=== PATIENT | female | born 1970 | race Caucasian/White ===

== ENCOUNTER → 2016-06-05 | Outpatient (CLI) | payer OTHER ==
[2016-06-05 15:06] LABS: EKG EKG PERFORMED
[2016-06-05 15:40] LABS: Basophils # (A) 0.1 k/uL (0-0.2); Basophils % (A) 1 %; CH 31.3; CHCM 33.3; Eosinophils # (A) 0.1 k/uL (0-0.7); Eosinophils % (A) 1 %; HCT 44.2 % (34.0-46.0); HDW 2.28; HGB 14.1 gm/dL (11.4-16.0); Luc # (Auto) 0.34; Luc % (Auto) 3; Lymphocytes # (A) 2.4 k/uL (1.0-4.8); Lymphocytes % (A) 22 %; MCH 30.1 pg (25.0-35.0); MCHC 31.9 g/dL (31.0-37.0); MCV 94.5 fL (80.0-100.0); Mean Platelet Volume 7.5; Monocytes # (A) 0.5 k/uL (0-1.0); Monocytes % (A) 5 %; Neutrophils # (A) 7.4 k/uL (1.3-7.7); Neutrophils % (A) 68 %; RBC 4.68 m/uL (3.80-5.40); RDW 13.6 % (11.5-15.5); WBC 10.9 k/uL (3.8-10.6); WBC (Perox) 11.54
[2016-06-05 15:44] LABS: ALT 46 U/L (9-52); AST 24 U/L (14-36); Alkaline Phosphatase 109 U/L (38-126); Anion Gap 13 mmol/L; Blood Urea Nitrogen 14 mg/dL (7-17); Calcium 10.2 mg/dL (8.4-10.2); Carbon Dioxide 27 mmol/L (22-30); Chloride 102 mmol/L (98-107); Glucose 98 mg/dL (74-99); Non-African American GFR(MDRD) >60 (>60 ml/min/1.73 sqM); Partial Thromboplastin Time 22.8 sec (22.0-30.0); Potassium 4.2 mmol/L (3.5-5.1); Prothrombin Time 10.4 sec (9.0-12.0); Sodium 142 mmol/L (137-145); Total Bilirubin 0.5 mg/dL (0.2-1.3); Total Protein 7.8 g/dL (6.3-8.2)
[2016-06-05 17:18] LABS: Appearance,Urine Clear (Clear); Bilirubin,Urine Negative (Negative); Glucose,Urine (UA) Negative (Negative); Ketones,Urine Negative (Negative); Leukocyte Esterase,Urine Negative (Negative); Nitrite,Urine Negative (Negative); Protein,Urine Negative (Negative); Specific Gravity,Urine 1.006 (1.001-1.035); UA Billing (MACRO vs. MICRO) CHEM; Urobilinogen,Urine <2.0 mg/dL (<2.0)
== END | disposition home or self-care (01) ==
LOC: LABPAT 14:01
PROVIDERS: ATTEND Orthopaedic Surgery Sports Medicine
DX: Z01.812 Encounter for preprocedural laboratory examination (principal); Z01.810 Encounter for preprocedural cardiovascular examination
CPT/HCPCS: 80053; 81003; 85025; 85610; 85730; 87070; 93005

== ENCOUNTER 2016-06-15 10:53 | Inpatient (IN) | payer OTHER ==
[2016-06-13 10:50] VITALS: BMI 39.2
[~2016-06-15 10:53] MED LIST: ACETAMINOPHEN TAB 500 MG TAB PO ONE; HYDROmorphone 1 MG/ML 1 ML SYRINGE IVP PRN; MELOXICAM 7.5 MG TAB PO ONE; MIDAZOLAM 2 MG/2 ML VIAL IV PRN; ONDANSETRON 4 MG/2 ML VIAL IVP ONE; TRANEXAMIC ACID 1,000 MG in SODIUM CHLORIDE 0.9% 100 ML IVPB ONE; ceFAZolin 2 GM in SODIUM CHLORIDE 0.9% 100 ML IVPB ONE
[2016-06-15] MEDS ORDERED: ROPIVACAINE 246.25 MG, EPINEPHrine 0.5 MG, KETOROLAC 30 MG, cloNIDine HCL/PF 80 MCG, WA... MISCELLANE ONE ×5 (11:08)
[2016-06-15] MEDS: LACTATED RINGERS 1,000 ML IV SCH ×2 (11:40→19:07)
[2016-06-15] MEDS ORDERED: LIDOCAINE 1% 20 ML VIAL (10MG/ML) FOR IV START INTRADERMA ONE (11:41)
[2016-06-15] MEDS ORDERED: SCOPOLAMINE 1.5MG/72HR PATCH TRANSDERM ONE (12:09)
[2016-06-15] MEDS ORDERED: TRANEXAMIC ACID 1,000 MG/10 ML VIAL ONE (12:16)
[2016-06-15] MEDS ORDERED: fentaNYL (PF) 50 MCG/ML 2 ML AMP ONE (12:16)
[2016-06-15] MEDS ORDERED: PROPOFOL 10 MG/ML 20 ML VIAL IV ONE (12:16)
[2016-06-15] MEDS ORDERED: SODIUM CHLORIDE 0.9% 100 ML BAG ONE (12:16)
[2016-06-15] MEDS ORDERED: MIDAZOLAM 2 MG/2 ML VIAL ONE (12:16)
[2016-06-15] MEDS ORDERED: ceFAZolin 3,000 MG in SODIUM CHLORIDE 0.9% IRRIGATIO 3,000 ML IRRIGATION ONE (12:51)
[2016-06-15] MEDS ORDERED: LACTATED RINGERS 1,000 ML IV ONE (13:54)
[2016-06-15] MEDS ORDERED: NA PHOS,M-B/NA PHOS,DI-BA 133 ML ENEMA RECTAL PRN (14:38)
[2016-06-15] MEDS ORDERED: HYDROcodone/APAP 7.5-325MG 1 EACH TAB PO PRN ×2 (14:38)
[2016-06-15] MEDS ORDERED: BISACODYL 10 MG SUPP RECTAL PRN (14:38)
[2016-06-15] MEDS ORDERED: TEMAZEPAM 15 MG CAP PO PRN (14:38)
[2016-06-15] MEDS ORDERED: DIAZEPAM 5 MG TAB PO PRN (14:38)
[2016-06-15] MEDS ORDERED: ONDANSETRON 4 MG/2 ML VIAL IVP PRN (14:38)
[2016-06-15] MEDS ORDERED: NALOXONE 0.4 MG/ML 1 ML VIAL IV PRN ×2 (14:38→15:29)
[2016-06-15] MEDS ORDERED: HYDROmorphone 1 MG/ML 1 ML SYRINGE IVP PRN ×3 (14:38)
[2016-06-15] MEDS ORDERED: ACETAMINOPHEN TAB 325 MG TAB PO PRN (14:38)
[2016-06-15] MEDS ORDERED: MAGNESIUM HYDROXIDE 2,400 MG/10 ML CUP PO PRN (14:38)
--- NOTE | 2016-06-15 15:19 | XR ---
EXAMINATION TYPE: XR knee limited LT DATE OF EXAM: 06/15/2016 3:09 PM COMPARISON: NONE HISTORY: Post knee replacement TECHNIQUE: 2 view left knee FINDINGS: Tibial and femoral components of in place. Soft tissue postsurgical changes are evident. No acute fractures are evident. IMPRESSION: 1. No acute fractures post knee replacement
[2016-06-15] MEDS ORDERED: diphenhydrAMINE 50 MG/ML 1 ML VIAL IVP PRN (15:29)
[2016-06-15] MEDS ORDERED: MORPHINE SULFATE 4 MG/ML SYRINGE IVP PRN ×2 (15:29→16:31)
[2016-06-15] MEDS ORDERED: ALPRAZolam 0.5 MG TAB PO PRN (16:52)
[2016-06-15] MEDS: MORPHINE SULFATE 4 MG/ML SYRINGE IVP PRN ×2 (17:14→21:24)
[2016-06-15] MEDS: ceFAZolin 2 GM in SODIUM CHLORIDE 0.9% 100 ML IVPB SCH (19:36)
[2016-06-15] MEDS: NALBUPHINE 10 MG/ML AMPUL IV PRN (20:05)
[2016-06-15] MEDS: CITALOPRAM HYDROBROMIDE 20 MG TAB PO SCH (21:23)
[2016-06-15] MEDS: SENNOSIDES-DOCUSATE SODIUM 1 EACH TAB PO SCH (21:23)
[2016-06-15] MEDS: ASPIRIN 325 MG TAB PO SCH (21:24)
--- NOTE | 2016-06-15 21:27 | PN ---
DATE OF SERVICE: 06/15/2016 Mecca is status post left total knee arthroplasty. I saw her when she was up on the floor postoperatively. She is resting very comfortably. Her pain is very much controlled. She has no complaints. The dressing is dry. There is no drainage noted. She has intact flexion-extension, inversion-eversion of the foot. She has intact lateral, medial, plantar and first dorsal web space sensation in the left foot and she has A 2+ palpable posterior tibial pulse with brisk capillary refill in all of her digits. IMPRESSION: Status post left total knee arthroplasty. RECOMMENDATIONS: Mecca is doing very well in the early postoperative period. We will continue with the usual postoperative care. She will start with Physical Therapy tomorrow. She will continue with Ancef 2 g IV antibiotic for prophylaxis over 24 hours. She will be on also anticoagulation regimen as well. All of her questions were answered to her satisfaction.
[2016-06-16] MEDS: MORPHINE SULFATE 4 MG/ML SYRINGE IVP PRN ×2 (00:47→04:51)
[2016-06-16] MEDS: LACTATED RINGERS 1,000 ML IV SCH ×4 (00:50→20:38)
[2016-06-16] MEDS: NALBUPHINE 10 MG/ML AMPUL IV PRN ×3 (02:02→12:34)
[2016-06-16] MEDS: ceFAZolin 2 GM in SODIUM CHLORIDE 0.9% 100 ML IVPB SCH (04:52)
[2016-06-16] MEDS: hydrOXYzine PAMOATE 25 MG CAP PO PRN ×3 (07:21→16:41)
[2016-06-16 07:25] LABS: Basophils % (A) 0 %; CH 31.2; CHCM 33.1; Eosinophils # (A) 0.1 k/uL (0-0.7); Eosinophils % (A) 1 %; HCT 33.6 % (34.0-46.0); HDW 2.27; Luc # (Auto) 0.28; Luc % (Auto) 3; Lymphocytes # (A) 1.8 k/uL (1.0-4.8); Lymphocytes % (A) 18 %; MCH 31.1 pg (25.0-35.0); MCHC 32.8 g/dL (31.0-37.0); MCV 94.7 fL (80.0-100.0); Mean Platelet Volume 7.3; Monocytes # (A) 0.7 k/uL (0-1.0); Monocytes % (A) 7 %; Neutrophils # (A) 6.9 k/uL (1.3-7.7); Neutrophils % (A) 70 %; RBC 3.55 m/uL (3.80-5.40); RDW 13.8 % (11.5-15.5); WBC 9.8 k/uL (3.8-10.6); WBC (Perox) 10.59
--- NOTE | 2016-06-16 07:40 | OP ---
DATE OF SERVICE: 06/15/2016 SURGEON: BELL ROSAS MD LIGHTING SPECIALIST: Jacob Rojas PA-C PREOPERATIVE DIAGNOSIS: Left knee osteoarthrosis. POSTOPERATIVE DIAGNOSIS: Left knee osteoarthrosis. OPERATION: Left total knee arthroplasty. ANESTHESIA: Spinal with sedation. ESTIMATED BLOOD LOSS: 100 mL SPECIMENS REMOVED: COMPLICATIONS: None apparent. TOURNIQUET TIME: 56 minutes at 250 mmHg. DRAINS: None. DISPOSITION: Postanesthesia care unit. OPERATIVE FINDINGS: INDICATIONS: Mecca is a very pleasant 45-year-old female with long-standing history of left knee pain. History and physical examination are consistent with advanced left knee osteoarthrosis. She has been through a fairly long and significant nonoperative management up to this point. Further treatment options were discussed and she decided to go forward with a left total knee arthroplasty. The risks of procedure were discussed with her in detail. These risks include, but are not limited to risk of infection, nerve damage, bleeding, pain, and a risk of deep vein thrombosis, which could lead to fatal pulmonary embolism. There is also a risk of loosening of the implant, which could require revision operation. Patient understands that she is at slightly increased risk of long-term potential loosening or revision operation due to her young age at the time of her index arthroplasty. All of her questions were answered to her satisfaction. Appropriate informed consent was obtained. DESCRIPTION OF PROCEDURE: Patient was identified in the preoperative holding area. The surgical site was marked by both the patient and myself. She was given 2 gram of Ancef IV for prophylactic purposes. She was then transferred to the operative suite where she was placed supine on the operating room table. Spinal anesthetic was then administered and dosed per the Anesthesia Department without apparent complication. Examination under anesthesia was then performed. The patient had full extension. She had 95 degrees of flexion and the medial collateral ligament, lateral collateral ligament and posterior cruciate ligaments were stable. Tourniquet was then placed high on the left upper thigh, well padded in preparation for surgery. Patient's left lower extremity was then prepped and draped usual sterile fashion. Standard surgical pause was then undertaken to ensure that were operating on correct site and that appropriate preoperative antibiotics had been given. All staff in the room were in agreement and we proceeded. The outlines of the patella were then marked with a surgical pen. A planned 12 cm vertical incision centered over the patella was then marked with a surgical pen. The leg was then exsanguinated with an Esmarch dressing. The knee was then flexed and the tourniquet was inflated to 250 mmHg. The tourniquet time for the procedure was 56 minutes. The incision was then made with a 10 blade scalpel. Dissection was carried down sharply of the overlying fascia. Great care was taken to minimize skin flaps. The knee was then exposed using a standard medial parapatellar approach. A small cuff of quadriceps tendon was then left for suturing. She was in quite a bit of varus preoperatively. A standard medial release was then made. Superficial medial collateral ligament was dissected off the bone around to the posterior aspect of the proximal tibia. The medial meniscus was then excised as well. The lateral meniscus was also released anteriorly. The leg was then externally rotated. The patella was then everted and the knee was flexed. Retractor was then placed to protect the collateral ligaments. I then proceeded to remove the infrapatellar fat pad. This was excised sharply tangentially with the fibers of the patellar tendon. I then proceeded to remove the peripheral osteophytes. This was done with a rongeur. I then proceeded with the distal femoral resection. She did have full extension. A planned 9 mm resection was then done. The femoral canal was then entered in the midline of the femur, approximately 10 mm anterior to the origin of the posterior cruciate ligament. The marita was then advanced down the center of the femur and the marita was placed intramedullary. Based on preoperative radiographs, the angle between the anatomic and mechanical axis of the femur was approximately 4 to 5 degrees. The valgus angle of distal femoral cutting guide was set at 4 degrees for the left knee. The distal femoral cutting guide was then advanced over the intramedullary marita. This was seated firmly against the femur. I then, as mentioned, planned to take 9 mm off the distal femur. The cutting block was then secured onto the femur with pins. Jig was then removed and the distal femoral cut was made through the slot of the block. The pins then removed and the distal femoral cutting block was removed. The accuracy of the distal femoral cuts was checked with 2 flat bars. I then proceeded with femoral sizing. The posterior referencing sizing guide was held firmly against the resected distal surface of the femur. Posterior condyles were resting on the posterior plane of the guide. The sizing status was then placed on the anterior femur. The size was measured at a size 7. I then assessed for femoral rotation. Plan was for 3 degrees of external rotation. 3 degrees of external rotation was placed onto the jig. These holes were then marked. I then confirmed the rotation by 3 separate methods. This was done using epicondylar axis as well as [place] line and posterior referencing. It was deemed that the external rotation was proper. I then went forward with placing the femoral cutting block. This was placed over the previously placed pinholes. The joyce wing was then placed onto the anterior slots to ensure that we would not notch the anterior femur with the anterior femoral cut. I then proceeded with the anterior femoral cut. This was flush with the anterior cortex of the femur. Posterior cuts were then made followed by the anterior chamfer cut and then the posterior chamfer cut. The cutting block was then removed. Throughout the resection, the collateral ligaments were then protected with retractors. I then placed a trial 7 femur. It fit very nice medial to lateral and fit flush with the distal end of the femur. The drill holes were then made. I then proceeded with the tibial cut. I planned for cruciate-retaining knee. The guide was then placed and set for varus valgus and for slope. The height was set for an approximately 2 mm resection from the medial tibial plateau, which was the lower side. I was happy with the alignment and the amount of resection. The cutting block was then pinned to the proximal tibia. The alignment marita was removed and the proximal tibia was resected with the reciprocating saw. Again this was done with retractors, protecting the collateral ligaments as well as posterior cruciate ligament. I then proceeded to evaluate the flexion and extension gaps. A 10 mm block was placed. Flexion-extension gaps were equal. I then proceeded with resection of posterior osteophytes. She had very minimal posterior osteophytes. This was done using a curved osteotome. This resected the posterior osteophytes and posterior capsule stripping was also done at this time off the posterior aspect of the femur. The osteophytes were removed. I then proceeded with resection of the patella. The thickness of the patella was measured using the caliper. Thickness was 22 mm. The thickness of the anticipated patellar dome was taken into account. Resection was then performed and confirmed to be equal in 4 quadrants using the caliper. Approximately 14 mm of bone remained after the resection. A 32 x 8.5 standard patellar trial was then placed. The holes were then drilled and trial was then placed. I then proceeded with sizing tibial plate. A size E tibial plate fit very nicely. I then placed a trial femur, the tibial tray and the patellar button. A 12 mm trial tibial insert was also placed. The components fit very nicely. She had full flexion and extension. The flexion-extension gaps were equal and stable to both varus and valgus stress. The patella tracked appropriately. The tibial tray rotation was then marked with a Bovie. This was externally rotated properly. I then proceeded with tibial preparation. I first drilled the femoral holes and removed the femoral component. The tibial tray was then set for proper external rotation as well as medial, lateral placement onto the tibia. It was then pinned into place. I then proceeded with punching the keel. I then decided to proceed with cementing of all of our components. The knee was thoroughly irrigated with sterile saline solution via pulse lavage. The lateral genicular artery was identified and cauterized. All blood was removed from the bone of the tibia, femur and patella with pulse lavage. I then proceeded with cementing. Two packs of antibiotic bone cement were prepared on the back table by the surgical services assistant. I then proceeded with cementing of the tibia first. The cement was impacted in the keel as well as deeply seated into bone. A second coat of cement was then placed. The tibia was then impacted into place. Excess cement was removed with [place]'s and jokers. I then proceeded with cementing the femoral component. The femoral component was also cemented using standard technique. Excess cement was removed. A 12 mm trial tibial insert was then placed and held until the cement had hardened. The patellar component was then cemented. This was held firmly with a compressive device until the cement had dried. When the cement had dried, the knee was taken out of extension. All excess cement was removed from around the prosthesis. I then trialed the knee with a 12 mm insert. I continued up to a size 16 mm insert. Flexion-extension gaps felt very good at this point. The knee was very stable. It came into full extension. I decided to go forward with a 16 mm cross-linked cruciate-retaining tibial insert. Polyethylene was then placed onto the tibial tray and locked. The knee was then reduced. The knee was again further irrigated with sterile saline solution with antibiotic added. The tourniquet was then deflated. Total tourniquet time for the procedure was 56 minutes at 250 mmHg. Final components were a Robert Persona size 7 cruciate-retaining femoral component, a size E tibial tray, a 16 mm cruciate retaining medial congruent polyethylene insert and a 32 x 8.5 mm patella. I then proceeded with closure. Again, the knee was thoroughly irrigated with antibiotic-impregnated saline solution. The quadriceps tendon and the medial retinaculum were reapproximated using #2 Ethibond suture. The extensor mechanism was then closed with running #2 Quill suture. Subcutaneous tissues were then closed with 2-0 Vicryl interrupted suture. Skin was closed with a running 3-0 Quill suture. Dermabond was applied to the incision. Sterile compressive dressings were then applied. All sponge and needle counts were deemed correct prior to closure. The patient tolerated the procedure without apparent complication. She was transferred to recovery room in stable condition.
[2016-06-16] MEDS: ASPIRIN 325 MG TAB PO SCH ×2 (07:44→20:39)
[2016-06-16] MEDS: LORATADINE 10 MG TAB PO SCH (07:44)
[2016-06-16] MEDS: LOSARTAN-HCTZ 50-12.5 MG 1 EACH TAB PO SCH (07:45)
--- NOTE | 2016-06-16 08:27 | P.PN ---
Subjective Principal diagnosis: Status post left total knee arthroplasty This is a 45 year-old female post total knee arthroplasty. This is post-op day 1. The patient was evaluated at the bedside today. The patient denies nausea, vomiting, abdominal pain, shortness of breath, and chest pain this morning. She states her pain is controlled at this time with [place] and Ultram. The patient has not been up with physical therapy yet this morning. Objective - Vital Signs Vital signs: Vital Signs Temp 99.1 F 06/16/16 03:00 Pulse 88 06/16/16 03:00 Resp 16 06/16/16 03:00 BP 103/67 06/16/16 03:00 Pulse Ox 94 L 06/16/16 03:00 Intake & Output 06/15/16 06/16/16 06/16/16 18:59 06:59 18:59 Intake Total 2201 3100 Output Total 250 1800 Balance 1951 1300 Intake: IV 1601 1100 Lactated Ringers 1,000 ml 1100 @ 100 mls/hr IV .Q10H WILLIAM Rx#:[id number] Oral 600 2000 Output: Urine 150 1800 Uretheral (Steward) 1800 Estimated Blood Loss 100 Other: Voiding Method Indwelling Catheter Indwelling Catheter - Exam The patient does not appear in acute distress. Alert and orientated x3. Dressing is clean dry and intact. Incision appears fine with no erythema or active drainage. Calf is soft and nontender. Good foot and ankle motion without difficulty. Sensation and circulatory status is intact. - Labs CBC & Chem 7: 06/16/16 06:45 Labs: Abnormal Lab Results - Last 24 Hours (Table) 06/16/16 Range/Units 06:45 RBC 3.55 L (3.80-5.40) m/uL Hgb 11.0 L D (11.4-16.0) gm/dL Hct 33.6 L (34.0-46.0) % Assessment and Plan (1) Primary osteoarthritis of left knee Status: Acute (2) Status post left knee replacement Status: Acute Plan: 1. Continue pain control 2. Anticoagulation with Aspirin 3. Continue physical therapy and ambulation 4. Anticipate discharge home with homecare tomorrow
[2016-06-16] MEDS: traMADol 50 MG TAB PO PRN ×3 (08:49→20:39)
--- NOTE | 2016-06-16 09:06 | P.PN ---
Progress Note - Text Postop day 1 from knee replacement under spinal anesthesia with intrathecal morphine given for postop pain management. Patient is doing well. Pain is well controlled. On visual analog scale 2-3/10 She had a very bad itching last night, received Benadryl and Nubain, it is getting better now. No nausea or vomiting reported. No Headache or weakness and numbness in the legs. No complications from spinal anesthesia.
--- NOTE | 2016-06-16 11:13 | P.CONS ---
History of Present Illness - Reason for Consult Consult date: 06/15/16 Medical management Requesting physician: Justin Pelayo - Chief Complaint Left total knee arthroplasty, hypertension, depression, ADHD, chronic smoki - History of Present Illness 45-year-old female [address] Coon patient was mildly overweight has history of hypertension hyperlipidemia depression and ADHD who had suffered from severe arthritis of the left knee for the last 2 years become much worse lately was seen Dr. Pelayo and failure to conservative management patient ended up going for total knee arthroplasty which was done today successfully with no major complication. Patient was admitted to the orthopedic floor after surgery she is laying comfortably in bed no complications so far, hemodynamically is very stable. Review of Systems Constitutional: Reports fatigue, Reports lethargy, Reports weight gain, Denies as per HPI, Denies anorexia, Denies chills, Denies chronic headaches, Denies chronic pain, Denies daytime sleepiness, Denies fever, Denies malaise, Denies night sweats, Denies poor appetite, Denies sweats, Denies weakness, Denies weight loss Eyes: bilateral as per HPI Ears: bilateral: decreased hearing Ears, nose, mouth and throat: Reports ant. neck pain, Reports nasal congestion, Reports sinus pressure, Denies as per HPI, Denies bleeding gums, Denies dental pain, Denies dysphagia, Denies epistaxis, Denies headache, Denies hoarseness, Denies mouth pain, Denies nasal discharge, Denies neck fullness/pressure, Denies neck lump, Denies nose pain, Denies odynophagia, Denies post-nasal drip, Denies sinus pain, Denies swelling in mouth, Denies swelling in throat, Denies sore throat, Denies vertigo, Denies voice changes Breasts: bilateral: as per HPI Cardiovascular: Reports edema, Denies as per HPI, Denies chest pain, Denies claudication, Denies decreased exercise tolerance, Denies dyspnea on exertion, Denies high blood pressure, Denies irregular heart beat, Denies leg edema, Denies lightheadedness, Denies orthopnea, Denies palpitations, Denies paroxysmal nocturnal dyspnea, Denies phlebitis, Denies rapid heart beat, Denies shortness of breath, Denies syncope Respiratory: Reports congestion, Reports cough, Reports dyspnea, Denies as per HPI, Denies cough with sputum, Denies excessive sputum, Denies hemoptysis, Denies home oxygen, Denies pain, Denies pain on inspiration, Denies pleurisy, Denies respiratory infections, Denies sleep apnea, Denies snoring, Denies wheezing Gastrointestinal: Reports abdominal pain, Reports bloating, Reports indigestion , Reports nausea, Denies as per HPI, Denies belching, Denies BRBPR, Denies change in bowel habits, Denies coffee ground emesis, Denies constipation, Denies diarrhea, Denies dyspepsia, Denies early satiety, Denies excessive gas, Denies heartburn, Denies hematemesis, Denies hematochezia, Denies jaundice, Denies lactose intolerance, Denies loss of appetite, Denies melena, Denies vomiting Genitourinary: Reports urinary frequency, Denies as per HPI, Denies abnormal vaginal bleeding, Denies decreased libido, Denies difficulty conceiving, Denies difficulty voiding, Denies dysmenorrhea, Denies dyspareunia, Denies dysuria, Denies flank pain, Denies genital sores, Denies hematuria, Denies hot flashes, Denies incomplete emptying, Denies kidney stones, Denies menorrhagia, Denies mixed incontinence, Denies nocturia, Denies pelvic pain, Denies post void dribbling, Denies , Denies prolapse symptoms, Denies stress incontinence , Denies urge incontinence, Denies urgency, Denies vaginal discharge, Denies vaginal dryness, Denies vaginal itching, Denies vaginal odor Musculoskeletal: Reports arm numbness/tingling, Reports loss of height, Reports myalgias, Reports neck pain, Reports neck stiffness, Denies as per HPI, Denies atrophy, Denies fractures, Denies frequent falls, Denies gait dysfunction, Denies hot joints, Denies leg numbness/tingling, Denies limitation of motion, Denies low back pain, Denies morning stiffness, Denies muscle cramps, Denies muscle weakness, Denies prior amputations, Denies redness of joints, Denies shooting arm pain, Denies shooting leg pain Musculoskeletal: bilateral: ankle pain Integumentary: Reports pruritus, Reports rash, Denies as per HPI, Denies acne, Denies boils, Denies brittle nails, Denies change in hair/nails, Denies color changes, Denies darkening of skin, Denies depigmentation, Denies dryness, Denies foot/leg ulcers, Denies growths, Denies hirsutism, Denies lesions, Denies onychomycosis, Denies sores, Denies striae, Denies unusual bruising, Denies wounds Neurological: Reports aphasia, Reports ataxia, Reports tingling, Denies as per HPI, Denies balance difficulties, Denies burning pain, Denies change in mentation, Denies change in smell/taste, Denies change in speech, Denies confusion, Denies convulsions, Denies double vision, Denies gait dysfunction, Denies head injury, Denies headaches, Denies hearing difficulties, Denies lack of coordination, Denies loss of vision, Denies memory loss, Denies migraines, Denies motor disturbance, Denies numbness, Denies paralysis, Denies paresthesias , Denies seizures, Denies sensory deficit, Denies spasticity, Denies syncope, Denies tic, Denies transient paralysis, Denies tremors, Denies vertigo, Denies weakness, Denies visual changes Psychiatric: Reports anhedonia, Reports depression, Reports sadness/tearfulness , Denies as per HPI, Denies anxiety, Denies anxiety attacks, Denies change in appetite, Denies change in libido, Denies change in sleep habits, Denies confusion, Denies difficulty concentrating, Denies disorientation, Denies hallucinations, Denies hopelessness, Denies hypersomnia, Denies insomnia, Denies irritability, Denies memory loss, Denies mood swings, Denies paranoia, Denies sleep disturbances, Denies suicidal ideation Endocrine: Reports deepening of the voice, Reports excessive sweating, Reports polyuria, Denies as per HPI, Denies cold intolerance, Denies excessive thirst, Denies fatigue, Denies flushing, Denies heat intolerance, Denies high blood sugars, Denies increase in ring/shoe/hat size, Denies low blood sugars, Denies nocturia, Denies palpitations, Denies polydipsia, Denies polyphagia, Denies proptosis, Denies recent glucocorticoid use, Denies thyroid mass, Denies weight change Hematologic/Lymphatic: Reports easy bruising, Denies as per HPI, Denies easy bleeding, Denies lymphadenopathy, Denies lymphedema, Denies thrombophilia Allergic/Immunologic: Denies as per HPI, Denies allergic rhinitis, Denies anaphylaxis, Denies angioedema, Denies gluten intolerance, Denies persistent infections, Denies seasonal allergies, Denies urticaria, Denies wheezing Past Medical History Additional Past Medical History / Comment(s): Chronic back pain History of Any Multi-Drug Resistant Organisms: None Reported Past Surgical History: Ear Surgery, Orthopedic Surgery Additional Past Surgical History / Comment(s): Left knee surgery, left rotator cuff repair, deviated septum repair, sinus surgery, ear surgery, bilateral carpal tunnel release Past Anesthesia/Blood Transfusion Reactions: Motion Sickness, Postoperative Nausea & Vomiting (PONV) Past Psychological History: ADD/ADHD, Anxiety, Depression Smoking Status: Current every day smoker Past Alcohol Use History: None Reported Additional Past Alcohol Use History / Comment(s): STARTED SMOKING AGE 15 SMOKES 3 CIG PER DAY AT THIS TIME TRYING TO QUIT Past Drug Use History: None Reported - Past Family History Mother Family Medical History: No Reported History Medications and Allergies Home Medications Medication Instructions Recorded Confirmed Type Dextroamphetamine/Amphetamine 30 mg PO BID 04/14/15 06/15/16 History [Amphetamine Salts 30 mg Tablet] Loratadine [Loratadine] 10 mg PO DAILY 04/14/15 06/15/16 History ALPRAZolam [Xanax] 2 mg PO TID PRN 06/13/16 06/15/16 History Citalopram Hydrobromide [CeleXA] 20 mg PO HS 06/13/16 06/15/16 History Hydrocodone/Acetaminophen [[place] 1 tab PO Q6H PRN 06/13/16 06/15/16 History 10-325] Ibuprofen [Motrin] 800 mg PO Q6HR PRN 06/13/16 06/15/16 History Losartan/Hydrochlorothiazide 1 tab PO DAILY 06/13/16 06/15/16 History [Hyzaar 50-12.5 Tablet] Allergies Allergy/AdvReac Type Severity Reaction Status Date / Time No Known Allergies Allergy Verified 06/15/16 11:33 Physical Exam Vitals: Vital Signs Temp Pulse Resp BP Pulse Ox 06/15/16 15:00 68 16 129/66 98 06/15/16 14:45 60 14 116/64 97 06/15/16 14:34 97.2 F L 60 14 122/70 97 06/15/16 11:26 74 16 121/69 95 Intake and Output 06/15/16 06/15/16 06/15/16 06:59 14:59 22:59 Intake Total 1201 400 Output Total 200 50 Balance 1001 350 Intake: IV 1201 400 Output: Urine 100 50 Estimated Blood Loss 100 - Constitutional General appearance: no average body habitus, cooperative, no disheveled, no mild distress, no morbidly obese, no acute distress, obese, no severe distress, no thin - EENT Eyes: no abnormal pupil, no anicteric sclerae, no disc margins sharp, no edentulous, no EOMI, no PERRLA, no fundus normal, no photophobia, no dentition normal, no poor dentition, no ptosis, no scleral icterus, normal appearance ENT: no hard of hearing, no hearing grossly normal, no NA/AT, no normal oropharynx, no other, pharyngeal erythema, no thrush, no tonsillar exudates, no tonsillar swelling Ears: bilateral: normal, bulging - Neck Neck: no lymphadenopathy, normal ROM, no other, no rigidity, no stridor, no thyromegaly Carotids: bilateral: upstroke normal Thyroid: bilateral: normal size - Respiratory Respiratory: bilateral: CTA, diminished, dullness - Cardiovascular Rhythm: regular Heart sounds: normal: S1, S2 - Gastrointestinal General gastrointestinal: no absent bowel sounds, decreased bowel sounds, no distended, no hepatomegaly, no hyperactive bowel sounds, no normal bowel sounds , no organomegaly, no rigid, no scaphoid, soft, no splenomegaly, no tenderness, no umbilical hernia, no ventral hernia - Integumentary Integumentary: no calor, no cellulitis, no cyanotic, no decreased turgor, no flushed, no jaundiced, normal, no normal turgor, pale, rash, no ulcer - Neurologic Neurologic: CNII-XII intact - Musculoskeletal Musculoskeletal: gait normal, generalized weakness, no strength equal bilaterally, no right sided weakness, no left sided weakness - Psychiatric Psychiatric: A&O x's 3 Assessment and Plan Plan: 1 post left total knee arthroplasty: Continue to watch patient with dynamic status, GI, DVT and pulmonary prophylaxis. 2 hypertension: Doing very well on losartan HCT 50/12.5 mg daily resume medication. 3 ADHD: Has been on Adderall which will be held for the first day. 4 chronic pain syndrome: Has been on hydrocodone as needed. 5 depression: Patient is on Celexa resume medication. 6 severe anxiety and panic attacks: Patient is on high dose of Xanax 2 mg 3 times a day as needed will reduce the dose not to exceed 1 mg twice a day. 7 smoking: Smoking cessation was addressed patient be on nicotine patch. CODE STATUS: Full code. Dr. Pelayo thank you very much for the consult if I can be any further help to please let me know thank you.
[2016-06-16] MEDS ORDERED: HYDROcodone/APAP 10-325MG 1 EACH TAB PO PRN (11:18)
[2016-06-16] MEDS: KETOROLAC 30 MG/ML 1 ML VIAL IVP PRN ×2 (11:47→17:56)
[2016-06-16] MEDS: GABAPENTIN 300 MG CAP PO SCH ×2 (11:51→20:39)
[2016-06-16] MEDS ORDERED: MULTIVITAMINS, THERA 1 EACH TAB PO SCH (12:00)
[2016-06-16] MEDS: HYDROcodone/APAP 10-325MG 1 EACH TAB PO PRN ×3 (12:33→20:40)
--- NOTE | 2016-06-16 14:46 | P.PN ---
Subjective 45-year-old female [address] Coon patient was mildly overweight has history of hypertension hyperlipidemia depression and ADHD who had suffered from severe arthritis of the left knee for the last 2 years become much worse lately was seen Dr. Pelayo and failure to conservative management patient ended up going for total knee arthroplasty which was done today successfully with no major complication. Patient was admitted to the orthopedic floor after surgery she is laying comfortably in bed no complications so far, hemodynamically is very stable. 06/16: Patient is complaining of pain as an issue. She is normally on [place] tens but has been on 7.5 CR. Patient will be resumed back on [place] 10 and Toradol added. She has been hemodynamically stable, afebrile. Repeat hemoglobin 11.0. Objective - Vital Signs Vital signs: Vital Signs Temp 98.9 F 06/16/16 14:09 Pulse 71 06/16/16 14:09 Resp 16 06/16/16 14:09 BP 117/55 06/16/16 14:09 Pulse Ox 94 L 06/16/16 14:09 Intake & Output 06/15/16 06/16/16 06/16/16 18:59 06:59 18:59 Intake Total 2201 3100 360 Output Total 250 1800 3600 Balance 1951 1300 -3240 Intake: IV 1601 1100 Lactated Ringers 1,000 ml 1100 @ 100 mls/hr IV .Q10H ON LICENSE OF [facility] Rx#:[id number] Oral 600 2000 360 Output: Urine 150 1800 3600 Uretheral (Steward) 1800 2500 Estimated Blood Loss 100 Other: Voiding Method Indwelling Catheter Indwelling Catheter Indwelling Catheter - Exam General appearance: no average body habitus, cooperative, no disheveled, no mild distress, no morbidly obese, no acute distress, obese, no severe distress, no thin - EENT Eyes: no abnormal pupil, no anicteric sclerae, no disc margins sharp, no edentulous, no EOMI, no PERRLA, no fundus normal, no photophobia, no dentition normal, no poor dentition, no ptosis, no scleral icterus, normal appearance ENT: no hard of hearing, no hearing grossly normal, no NA/AT, no normal oropharynx, no other, pharyngeal erythema, no thrush, no tonsillar exudates, no tonsillar swelling Ears: bilateral: normal, bulging - Neck Neck: no lymphadenopathy, normal ROM, no other, no rigidity, no stridor, no thyromegaly Carotids: bilateral: upstroke normal Thyroid: bilateral: normal size - Respiratory Respiratory: bilateral: CTA, diminished, dullness - Cardiovascular Rhythm: regular Heart sounds: normal: S1, S2 - Gastrointestinal General gastrointestinal: no absent bowel sounds, decreased bowel sounds, no distended, no hepatomegaly, no hyperactive bowel sounds, no normal bowel sounds , no organomegaly, no rigid, no scaphoid, soft, no splenomegaly, no tenderness, no umbilical hernia, no ventral hernia - Integumentary Integumentary: no calor, no cellulitis, no cyanotic, no decreased turgor, no flushed, no jaundiced, normal, no normal turgor, pale, rash, no ulcer - Neurologic Neurologic: CNII-XII intact - Musculoskeletal Musculoskeletal: gait normal, generalized weakness, no strength equal bilaterally, no right sided weakness, no left sided weakness - Psychiatric Psychiatric: A&O x's 3 - Labs CBC & Chem 7: 06/16/16 06:45 Labs: Abnormal Lab Results - Last 24 Hours (Table) 06/16/16 Range/Units 06:45 RBC 3.55 L (3.80-5.40) m/uL Hgb 11.0 L D (11.4-16.0) gm/dL Hct 33.6 L (34.0-46.0) % Assessment and Plan Plan: 1 post left total knee arthroplasty: Continue to watch patient with dynamic status, GI, DVT and pulmonary prophylaxis. 2 hypertension: Doing very well on losartan HCT 50/12.5 mg daily resume medication. 3 ADHD: Has been on Adderall which will be held for the first day. 4 chronic pain syndrome: Has been on hydrocodone as needed. 5 depression: Patient is on Celexa resume medication. 6 severe anxiety and panic attacks: Patient is on high dose of Xanax 2 mg 3 times a day as needed will reduce the dose not to exceed 1 mg twice a day. 7 smoking: Smoking cessation was addressed patient be on nicotine patch. CODE STATUS: Full code. Discharge plan: Home with [facility] tomorrow Impression and plan of care have been directed as dictated by the signing physician. Carissa Juarez nurse practitioner acting as scribe for signing physician. Time with Patient: Greater than 30
[2016-06-16] MEDS: SENNOSIDES-DOCUSATE SODIUM 1 EACH TAB PO SCH (20:39)
[2016-06-16] MEDS: CITALOPRAM HYDROBROMIDE 20 MG TAB PO SCH (20:39)
[2016-06-17] MEDS: KETOROLAC 30 MG/ML 1 ML VIAL IVP PRN ×2 (00:31→06:29)
[2016-06-17] MEDS: HYDROcodone/APAP 10-325MG 1 EACH TAB PO PRN ×4 (00:38→11:35)
[2016-06-17] MEDS: LACTATED RINGERS 1,000 ML IV SCH ×2 (02:28)
[2016-06-17] MEDS: traMADol 50 MG TAB PO PRN ×2 (02:42→09:07)
[2016-06-17] MEDS ORDERED: CALCIUM CARBONATE 500 MG CHEWABLE PO PRN (04:37)
[2016-06-17 07:42] VITALS: BP 116/74; PULSE 90; RESP 16; TEMP 97.5
[2016-06-17] MEDS: ASPIRIN 325 MG TAB PO SCH (07:43)
[2016-06-17] MEDS: LORATADINE 10 MG TAB PO SCH (07:43)
[2016-06-17] MEDS: LOSARTAN-HCTZ 50-12.5 MG 1 EACH TAB PO SCH (07:44)
[2016-06-17] MEDS: GABAPENTIN 300 MG CAP PO SCH (07:44)
--- NOTE | 2016-06-17 09:06 | P.DS ---
Providers Date of admission: 06/15/16 10:53 Expected date of discharge: 06/17/16 Attending physician: Justin Pelayo Consults: 06/15/16 14:38 Consult Physician Routine Consulting Provider: Felipe Luna Reason/Comments: post op medical management Do you want consulting provider notified?: Yes Primary care physician: Giorgio Coon - Discharge Diagnosis(es) (1) Primary osteoarthritis of left knee Current Visit: Yes Status: Acute (2) Status post left knee replacement Current Visit: Yes Status: Acute Hospital Course: This is a pleasant 45-year-old female last seen in our office with complaints of left knee pain. Patient has known history of degenerative arthritis of the left knee and presented to discuss options. After discussion and consideration , the patient elected to proceed with a left total knee arthroplasty. Patient was seen preoperatively, and medically cleared for surgery by Dr. Coon. Patient was admitted to [facility] underwent left total knee arthroplasty on 06/15/[address] Pelayo. The procedure was performed without complications or sequelae. The patient is seen and evaluated at bedside today. Pain is well-controlled. Patient has no new complaints today and denies any fevers, chills, nausea, vomiting, or shortness of breath. Vital signs are stable. Dressing is clean dry and intact. Incision looks fine with no erythema or active drainage. Calf is soft and nontender. Patient has full foot and ankle motion without difficulty. Patient's left lower extremity is neurovascularly intact. The patient is orthopedically stable for discharge today. Pertinent Studies: Laboratory Tests 06/16/16 06:45 WBC 9.8 RBC 3.55 L Hgb 11.0 L D Hct 33.6 L Patient Condition at Discharge: Stable Plan - Discharge Summary New Discharge Prescriptions: Aspirin 325 mg PO BID #60 tab Docusate [Colace] 100 mg PO BID #60 capsule traMADol HCl [Ultram] 50 - 100 mg PO Q4-6H PRN #90 tab PRN Reason: Pain Discharge Medication List Dextroamphetamine/Amphetamine [Amphetamine Salts 30 mg Tablet] 30 mg PO BID [History] Loratadine [Loratadine] 10 mg PO DAILY 04/14/15 [History] ALPRAZolam [Xanax] 2 mg PO TID PRN 06/13/16 [History] Citalopram Hydrobromide [CeleXA] 20 mg PO HS 06/13/16 [History] Hydrocodone/Acetaminophen [[place] 10-325] 1 tab PO Q6H PRN 06/13/16 [History] Ibuprofen [Motrin] 800 mg PO Q6HR PRN 06/13/16 [History] Losartan/Hydrochlorothiazide [Hyzaar 50-12.5 Tablet] 1 tab PO DAILY 06/13/16 [ History] Aspirin 325 mg PO BID #60 tab 06/15/16 [Rx] Docusate [Colace] 100 mg PO BID #60 capsule 06/15/16 [Rx] traMADol HCl [Ultram] 50 - 100 mg PO Q4-6H PRN #90 tab 06/16/16 [Rx] Follow up Appointment(s)/Referral(s): Justin Pelayo MD [STAFF PHYSICIAN] - 06/26/16 1:00 pm [facility] Visiting Nurse, [NON-STAFF] - Ambulatory/Diagnostic Orders: Continuous Passive Motion (CPM) Machine [DME.AMB1] Time Frame: 3 Weeks, Location : Determined By Patient Activity/Diet/Wound Care/Special Instructions: [facility] - [phone] [facility] - [facility] - [phone] - call when you get home for delivery of CPM Weight bear as tolerated Take meds as directed F/U with Dr. Pelayo in office Keep wound Clean and dry Discharge Disposition: HOME WITH HOME HEALTH SERVICES
--- NOTE | 2016-06-17 20:48 | PN ---
INTERVAL HISTORY: Patient continued to be hemodynamically stable. Denied any chest pain, shortness of breath, nausea, vomiting, abdominal pain, dizziness, light-headedness. Requesting Neurontin prescription prior to discharge. PHYSICAL EXAMINATION: VITAL SIGNS: Reviewed and stable. LUNGS: Clear to auscultation bilaterally. HEART: S1 and S2. ABDOMEN: Soft. No tenderness. Bowel sounds, upper quadrant. Left lower extremity positive for pulses. Dressing intact and dry. Imaging and labs reviewed. ASSESSMENT AND PLAN: 1. Status post left total knee arthroplasty. Pain under control. I filled the prescription for the patient to take Neurontin at home. Follow up with Ortho as per appointment. 2. Hypertension, under good control. 3. Anxiety and depression. Continue home medications. 4. ( ) postsurgical. Will continue monitoring outpatient per primary care physician. 5. Discharge process per primary team physician.
== END 2016-06-17 11:45 | disposition home health service (06) | DRG 470 ==
LOC: 2ORMAIN 10:53 → 3SUR 14:34
PROVIDERS: ADMIT Orthopaedic Surgery Sports Medicine; ATTEND Orthopaedic Surgery Sports Medicine
PROC: 0SRD0J9 Replacement of Left Knee Joint with Synthetic Substitute, Cemented, Open Approach (ICD-10-PCS; principal; 2016-06-15 12:30)
DX: M17.12 Unilateral primary osteoarthritis, left knee (principal); I10 Essential (primary) hypertension; F32.9 Major depressive disorder, single episode, unspecified; E78.5 Hyperlipidemia, unspecified; F17.200 Nicotine dependence, unspecified, uncomplicated; F41.9 Anxiety disorder, unspecified; F90.9 Attention-deficit hyperactivity disorder, unspecified type; Z79.899 Other long term (current) drug therapy
CPT/HCPCS: 81025; 85025; 88300

== ENCOUNTER → 2017-10-11 | Outpatient (CLI) | payer OTHER ==
[2017-10-11 18:01] LABS: Blood Urea Nitrogen 11 mg/dL (7-17)
== END | disposition home or self-care (01) ==
LOC: LABWHC1 17:24
PROVIDERS: ATTEND Psychiatry & Neurology Neurology
DX: R90.82 White matter disease, unspecified (principal)
CPT/HCPCS: 36415; 82565; 84520

== ENCOUNTER → 2017-10-29 | Outpatient (CLI) | payer OTHER ==
[2017-10-29 18:37] LABS: Total Protein,CSF 38 mg/dL (12-60)
[2017-10-29 18:57] LABS: Appearance,CSF Clear; CSF Tube Number 4; CSF Tube Volume 3.5
[2017-10-29 20:11] LABS: Red Blood Cell,CSF 0 u/L (0-10)
[2017-10-29 20:12] LABS: Nucleated Cells, CSF 7 u/L (0-5)
== END | disposition home or self-care (01) ==
LOC: LABWHC1 09:47
PROVIDERS: ATTEND Nurse Practitioner Acute Care
DX: R42 Dizziness and giddiness (principal); R90.82 White matter disease, unspecified
CPT/HCPCS: 36415; 82040; 82042; 82784; 83873; 83916; 84157; 87476; 89050

== ENCOUNTER → 2017-11-01 | Outpatient (CLI) | payer OTHER ==
--- NOTE | 2017-11-02 00:46 | MR ---
EXAMINATION TYPE: MR kala/lspine wo con DATE OF EXAM: 11/01/2017 COMPARISON: 10/30/2013 lumbar spine HISTORY: CERVICALGIA AND LUMBAGO TECHNIQUE: Multiplanar, multisequence imaging of the lumbar spine and cervical spine is performed wit hout IV contrast. FINDINGS: The cervical vertebra have normal alignment. There are moderate posterior disc herniations at C5-6 C6 -7 into the spinal canal. C6-7 disc herniation is larger with elevated posterior longitudinal ligamen t. There is some extruded disc material posterior to the C6 vertebral body. There is developmentally large spinal canal and no significant spinal stenosis. The canal measures 8 mm. Cervical spinal cord has normal signal pattern. There is no edema. Brainstem appears normal. There is no evidence of a fra cture. There is no evidence of cervical paraspinal mass. There is mild anterior disc herniation at C6 -7 also. The lumbar vertebra have normal alignment. There is slight decreased signal in the disks from L1 to L 5. There is no significant disc space narrowing. There are small posterior disc bulges at L1-L2 3. Th e neuroforamina are fairly well-maintained. There is no compression fracture. I see no bony destructi ve process. There is no lumbar paraspinal mass. The sacroiliac joints appear intact. IMPRESSION: Posterior disc herniations at C5-6 C6-7. There is extruded disc material at C6-7. Disc herniations ar e relatively large but there is a large spinal canal and no significant spinal stenosis. No fracture. Mild spondylotic changes in the lumbar spine with small posterior disc bulging at L1-2 and L2-3. No s mickey stenosis in the lumbar spine. No fracture. Lumbar spine appears not significantly different vani n old exam of 10/30/2013.
--- NOTE | 2017-11-02 01:18 | MR ---
EXAMINATION TYPE: MR brain wo/w con DATE OF EXAM: 11/01/2017 COMPARISON: NONE HISTORY: WHITE MATTER CHANGES TECHNIQUE: Multiplanar, multisequence images of the brain and brainstem is performed without and with IV contras t, utilizing 10 mL intravenous Gadavist . FINDINGS: Ventricles and sulci appear normal. There is no mass effect nor midline shift. There is no sign of in tracranial hemorrhage. On the T2 and FLAIR images there are a few scattered foci of increased signal in the subcortical white matter of both cerebral hemispheres. Total number is approximately 10 and th margoth measure less than 5 mm. Corpus callosum appears normal. Brainstem is intact. Sella turcica appear s normal. There is no evidence of a cortical infarct. Cerebellum appears normal. IMPRESSION: There are a few scattered small white matter high signal foci of uncertain significance. Otherwise ne gative exam.
== END | disposition home or self-care (01) ==
LOC: RADMRIMAIN 08:52
PROVIDERS: ATTEND Psychiatry & Neurology Neurology
DX: M50.222 Other cervical disc displacement at C5-C6 level (principal); M51.26 Other intervertebral disc displacement, lumbar region; M47.816 Spondylosis without myelopathy or radiculopathy, lumbar region; R90.89 Other abnormal findings on diagnostic imaging of central nervous system
CPT/HCPCS: 70553; 72141; 72148; A9581

== ENCOUNTER → 2017-12-04 | Outpatient (CLI) | payer OTHER | END | disposition home or self-care (01) | LOC: LABWHC1 17:00 | PROVIDERS: ATTEND Psychiatry & Neurology Neurology | DX: I49.9 Cardiac arrhythmia, unspecified (principal) | CPT/HCPCS: 36415; 93005 ==

== ENCOUNTER → 2018-08-27 | Outpatient (CLI) | payer OTHER | END | disposition home or self-care (01) | LOC: LABWHC1 11:38 | PROVIDERS: ATTEND Nurse Practitioner Acute Care | DX: I49.9 Cardiac arrhythmia, unspecified (principal) | CPT/HCPCS: 36415; 93005 ==

== ENCOUNTER → 2018-10-02 | Outpatient (CLI) | payer OTHER ==
--- NOTE | 2018-10-04 14:47 | MM ---
Reason for exam: screening (asymptomatic). Last mammogram was performed 1 year and 6 months ago. Physical Findings: A clinical breast exam by your physician is recommended on an annual basis and results should be correlated with mammographic findings. MG Screening Mammo w CAD Bilateral CC and MLO view(s) were taken. Prior study comparison: April 03, 2017, bilateral MG screening mammo w CAD. July 23, 2013, bilateral digital screening mammo w/CAD. The breast tissue is heterogeneously dense. This may lower the sensitivity of mammography. There is no discrete abnormality. No significant changes when compared with prior studies. ASSESSMENT: Negative, BI-RAD 1 RECOMMENDATION: Routine screening mammogram of both breasts in 1 year.
== END | disposition home or self-care (01) ==
LOC: RADMAMWWP 13:43
PROVIDERS: ATTEND Family Medicine
DX: Z12.31 Encounter for screening mammogram for malignant neoplasm of breast (principal)
CPT/HCPCS: 77067

== ENCOUNTER → 2019-03-11 | Outpatient (CLI) | payer OTHER ==
--- NOTE | 2019-03-12 09:13 | MR ---
EXAMINATION TYPE: MR knee RT wo con DATE OF EXAM: 03/11/2019 COMPARISON: Prior right knee 07/05/2015 HISTORY: Pain in right knee, Hx of injury x 3 years ago TECHNIQUE: Multiplanar, multisequence imaging of the right knee is performed without IV contrast. FINDINGS: MEDIAL MENISCUS: Some increased signal within the posterior horn of the medial meniscus extends into the body without evident tear LATERAL MENISCUS: Anterior and posterior horns are intact without tear. CRUCIATE LIGAMENTS: Neither anterior nor posterior cruciate ligament is intact. There is a lobular fo cus of isointense signal on T1, slightly increased signal on T2 sequences submitted at the posterior aspect of the joint extending into the intercondylar region which measures approximately 3.6 x 2.8 x 1.5 cm is bilaterally heterogeneous. COLLATERAL LIGAMENTS: Some increased signal along the popliteus tendon may be due to remote trauma or possibly strain, tendinosis. Fibular collateral ligament also show some increased internal signal po ssibly related to patient's prior trauma. EXTENSOR MECHANISM: Visualized quadriceps and patellar tendons are intact. EFFUSION: There is a small joint effusion and suprapatellar location POPLITEAL CYST: Semimembranosus gastrocnemius cyst is present with some mixed internal signal, likel y multilocular measuring approximately 3.6 x 1.7 x 1.3 cm. TRICOMPARTMENT SPACES: Relatively maintained CARTILAGE: There is grade 3 to grade IV chondromalacia posterior patella, grade 2 to grade III chondr omalacia medial compartment along the femoral condyle BONE MARROW SIGNAL: Increased signal on T2-weighted sequences, intermediate on T1 along the medial fe moral condyle in the subchondral location anteriorly noted possibly reactive marrow signal change. Sm all focus of localized well-defined low signal in the subchondral location along the lateral femoral condyle shows some central fat signal, high signal on T2 central probable fat signal injury approxima tely 7 mm in greatest cephalad to caudal dimension by 1.2 cm in AP dimension may represent a small fo cus of osteonecrosis. . OTHER: There is some increased signal at the level of the origin of the medial belly of the gastrocn emius tendon, focal area of remote tear is suspected IMPRESSION: Sequela from patient's prior knee dislocation are suspected. Anterior, posterior cruciate ligaments a re torn, the large abnormal soft tissue mass may be bilingual sales representative of mucoid degeneration of the post erior cruciate ligament, consider direct visualization. Osteoarthritic changes. Joint effusion and ad ditional findings above.
== END | disposition home or self-care (01) ==
LOC: RADMRIMAIN 09:12
PROVIDERS: ATTEND Orthopaedic Surgery Sports Medicine
DX: S83.511D Sprain of anterior cruciate ligament of right knee, subsequent encounter (principal); M17.11 Unilateral primary osteoarthritis, right knee; Z96.652 Presence of left artificial knee joint

== ENCOUNTER → 2019-03-20 | Outpatient (CLI) | payer OTHER ==
--- NOTE | 2019-03-20 11:49 | MR ---
EXAMINATION TYPE: MR shoulder LT wo con DATE OF EXAM: 03/20/2019 COMPARISON: None HISTORY: Pain in left shoulder, sprain left rotator cuff capsule, fell at work TECHNIQUE: Multiplanar, multisequence imaging of the left shoulder is performed without contrast. FINDINGS: There is some artifact present. Rotator Cuff: There is abnormal thickening and increased signal associated with the rotator cuff. Laron ng the distribution of the conjoined tendon, likely infraspinatus at the insertion there is a partial full-thickness tear present Acromioclavicular Joint: Hypertrophic changes are present at the acromioclavicular joint. There is so me widening of the joint, intermediate lobular T1 signal, increased on T2 weighted sequences extends superiorly from the level of the joint compatible with multilocular ganglion cyst measuring approxima tely 16 x 20 x 14 mm. There is some associated edematous signal within the soft tissues at this level . Glenohumeral Joint: There is some arthropathy change. Labrum: Some increased signal, irregularity of superior labrum may be due to some degenerative fraying. Biceps Tendon: The long head of biceps is in normal location within bicipital groove, some fluid sign al courses along the tendon. Bone marrow signal: No focal abnormal marrow signal is appreciated. Other: There is a joint effusion, fluid signal is present subacromial subdeltoid bursa. IMPRESSION: Partial full-thickness rotator cuff tear. Tendinosis. Ganglion cyst at the acromioclavicular joint wi th extensive arthropathy in likely erosion.
== END | disposition home or self-care (01) ==
LOC: RADMRIMAIN 09:50
PROVIDERS: ATTEND Orthopaedic Surgery Sports Medicine
DX: M67.412 Ganglion, left shoulder (principal); M75.122 Complete rotator cuff tear or rupture of left shoulder, not specified as traumatic; M12.812 Other specific arthropathies, not elsewhere classified, left shoulder; M67.814 Other specified disorders of tendon, left shoulder

== ENCOUNTER → 2019-04-28 | Outpatient (CLI) | payer OTHER ==
[2019-04-28 16:14] LABS: Appearance,Urine Clear (Clear); Bilirubin,Urine Negative (Negative); Blood,Urine Negative (Negative); Color,Urine Yellow; Glucose,Urine (UA) Negative (Negative); Ketones,Urine Negative (Negative); Leukocyte Esterase,Urine Negative (Negative); Nitrite,Urine Negative (Negative); Protein,Urine Negative (Negative); Specific Gravity,Urine 1.028 (1.001-1.035); Urobilinogen,Urine <2.0 mg/dL (<2.0)
[2019-04-28 16:18] LABS: HCT 39.2 % (34.0-46.0); HGB 13.3 gm/dL (11.4-16.0); MCH 32.4 pg (25.0-35.0); MCHC 33.9 g/dL (31.0-37.0); MCV 95.7 fL (80.0-100.0); Platelet Count 355 k/uL (150-450); RDW 13.7 % (11.5-15.5); WBC 13.2 k/uL (3.8-10.6)
[2019-04-28 16:39] LABS: ALT 22 U/L (4-34); AST 24 U/L (14-36); African American GFR (CKD) >90 (>60 ml/min/1.73 sqM); Albumin 4.6 g/dL (3.5-5.0); Alkaline Phosphatase 104 U/L (38-126); Anion Gap 10 mmol/L; Blood Urea Nitrogen 18 mg/dL (7-17); Carbon Dioxide 23 mmol/L (22-30); Chloride 105 mmol/L (98-107); Glucose 97 mg/dL (74-99); Non-African American GFR(CKD) >90 (>60 ml/min/1.73 sqM); Potassium 4.2 mmol/L (3.5-5.1); Sodium 138 mmol/L (137-145); Total Bilirubin 0.4 mg/dL (0.2-1.3); Total Protein 7.4 g/dL (6.3-8.2)
[2019-04-28 16:40] LABS: INR 0.9 (<1.2); Partial Thromboplastin Time 23.4 sec (22.0-30.0); Prothrombin Time 10.1 sec (9.0-12.0)
== END | disposition home or self-care (01) ==
LOC: LABPAT 15:17
PROVIDERS: ATTEND Orthopaedic Surgery
DX: Z01.812 Encounter for preprocedural laboratory examination (principal); M17.11 Unilateral primary osteoarthritis, right knee
CPT/HCPCS: 36415; 80053; 81003; 85027; 85610; 85730; 87070

== ENCOUNTER → 2019-05-02 | Outpatient (CLI) | payer OTHER | END | disposition home or self-care (01) | LOC: LABPAT 14:05 | PROVIDERS: ATTEND Orthopaedic Surgery | DX: Z01.818 Encounter for other preprocedural examination (principal) | CPT/HCPCS: 93005 ==

== ENCOUNTER 2019-05-26 05:32 | Observation (INO) | payer OTHER ==
[2019-05-16 15:25] VITALS: BMI 38.8
[~2019-05-26 05:32] MED LIST changes: +GABAPENTIN 300 MG CAP PO ONE; -HYDROmorphone 1 MG/ML 1 ML SYRINGE IVP PRN; -MIDAZOLAM 2 MG/2 ML VIAL IV PRN; -ONDANSETRON 4 MG/2 ML VIAL IVP ONE; -ceFAZolin 2 GM in SODIUM CHLORIDE 0.9% 100 ML IVPB ONE
[2019-05-26] MEDS ORDERED: SCOPOLAMINE 1.5MG/72HR PATCH TRANSDERM ONE (05:41)
[2019-05-26] MEDS ORDERED: MIDAZOLAM 2 MG/2 ML VIAL IV PRN (05:41)
[2019-05-26] MEDS ORDERED: DEXAMETHASONE SOD PHOSPHATE 10 MG/ML 1 ML VIAL IV ONE (05:41)
[2019-05-26] MEDS ORDERED: HYDROmorphone 0.5 MG/0.5 ML SYRINGE IVP PRN ×2 (05:41→09:56)
[2019-05-26] MEDS ORDERED: ONDANSETRON 4 MG/2 ML VIAL IVP ONE (05:41)
[2019-05-26] MEDS ORDERED: ROPIVACAINE 246.25 MG, EPINEPHrine 0.5 MG, KETOROLAC 30 MG, cloNIDine HCL/PF 80 MCG, WA... MISCELLANE ONE ×5 (06:00)
[2019-05-26] MEDS ORDERED: LACTATED RINGERS 1,000 ML IV ONE (06:30)
[2019-05-26] MEDS ORDERED: fentaNYL (PF) 50 MCG/ML 2 ML AMP IV ONE (06:40)
[2019-05-26] MEDS ORDERED: MIDAZOLAM 2 MG/2 ML VIAL IV ONE (06:40)
[2019-05-26] MEDS ORDERED: fentaNYL (PF) 50 MCG/ML 2 ML AMP ONE (06:59)
[2019-05-26] MEDS ORDERED: TRANEXAMIC ACID 1,000 MG/10 ML VIAL ONE (06:59)
[2019-05-26] MEDS ORDERED: SODIUM CHLORIDE 0.9% 100 ML BAG ONE (06:59)
[2019-05-26] MEDS ORDERED: PROPOFOL 10 MG/ML 20 ML VIAL IV ONE (06:59)
[2019-05-26] MEDS ORDERED: MIDAZOLAM 2 MG/2 ML VIAL ONE (06:59)
[2019-05-26] MEDS ORDERED: ePHEDrine SULFATE/0.9% NACL/PF 50 MG/5 ML SYRINGE IV ONE (06:59)
[2019-05-26] MEDS ORDERED: ROPIVACAINE 0.2%-NS ON-Q PUMP 1,090 MG, EMPTY PAIN BALL 1 EACH MISCELLANE PRN (07:29)
--- NOTE | 2019-05-26 07:31 | P.ANPRN ---
Procedure Note - Anesthesia - Nerve Block Performed Right Adductor Canal Infusion Time Out Performed: Yes Date of Procedure: 05/26/19 Procedure Start Time: 06:40 Procedure Stop Time: 06:50 Location of Patient: PreOp Indication: Acute Post-Operative Pain Specifically requested for management of pain by DrPlacido: Andrei Hernandez Sedation Type: Sedate with meaningful contact maintained Preparation: Sterile Prep Position: Supine Catheter Depth at Skin (cm): 10 Catheter: Indwelling Needle Types: Pajunk Needle Gauge: 18 Ultrasound used to visualize needle placement: Yes Ultrasound used to observe medication spread: Yes Injectate: 0.5% Ropivacaine (see comment for volume) (20 cc) Blood Aspirated: No Pain Paresthesia on Injection Noted: No Resistance on Injection: Normal Image Stored and Saved: Yes Events: Uneventful and Well Tolerated
[2019-05-26] MEDS ORDERED: ceFAZolin 3,000 MG in SODIUM CHLORIDE 0.9% IRRIGATIO 3,000 ML IRRIGATION ONE (07:40)
--- NOTE | 2019-05-26 09:38 | P.OP ---
Date of Procedure: 05/26/19 Preoperative Diagnosis: Severe instability of the right knee following dislocation of the knee with significant medial compartment osteoarthritis Postoperative Diagnosis: Severe instability of the right knee following dislocation of the knee with significant medial compartment osteoarthritis Procedure(s) Performed: Right total knee arthroplasty with a hinged knee Implants: [employer] Legion HK femoral component size 4, right [employer] legion press-fit stem straight 18 mm x 120 mm Ar[employer] legion HK hinge knee tibial baseplate size 3, right [employer]hew legion press-fit stem straight 10 mm x 160 mm Arreola [employer] Nephew size 11 mm Legion HK articular insert, size 2-3 right [employer]hew Ami II oval resurfacing patellar component, 29 mm All components were cemented using Palacos R bone cement.. The articulation is cobalt chrome on polyethylene. Anesthesia: spinal Surgeon: Andrei Hernandez Software Installation Engineer #1: Maeve Razo Estimated Blood Loss (ml): 50 Pathology: other (Bone and cartilage) Condition: stable Disposition: PACU Indications for Procedure: This is a 48-year-old female that had been seen by my partner Dr. Pelayo following a big sandy dislocation of her right knee. After appropriate treatment, she continues to have significant instability of her knee. Also, she has significant medial compartment arthritis, which makes her not a candidate for primary ligament reconstruction. After discussing the surgical nonsurgical treatment options with her at length, she wishes to proceed with a hinged constrained right total knee arthroplasty. Informed consent was obtained. Operative Findings: The operative findings are consistent with severe multi-ligament instability of the right knee as well as significant medial compartment osteoarthritis. Description of Procedure: Patient was seen in the preoperative area consent was reviewed and operative site was marked with a skin marker. An adductor canal pain catheter was placed by anesthesia in the preoperative area. Patient was then brought to the operating room and given preoperative antibiotics intravenously. A spinal anesthetic was administered by the anesthesia department. A tourniquet was placed on the upper thigh and the lower extremity was prepped and draped in usual sterile fashion. A gram of transexamic acid was given. A universal timeout was then performed which confirmed the patient's name, surgical site, ALLERGIES, and consent. Prior to surgery, the right lower extremity was examined under anesthesia. Patient had approximately 20 of hyperextension of her knee with significant medial lateral instability and posterior instability in flexion. The knee was extremely unstable. The lower extremity was then exsanguinated and tourniquet was inflated to 250 mmHg. A standard and anterior midline approach to the knee was performed. The skin and subcutaneous tissue was dissected down to the patellar tendon. A medial parapatellar arthrotomy was then performed. The knee was then extended, the patellar was everted, and the knee was again flexed. Anterior horns of both menisci were excised, and a release was performed to the posterior medial aspect of the knee. On gross visual inspection, there was significant loss of articular cartilage in the medial compartment. The ACL, PCL, and lateral collateral ligament complex was found to be completely torn. There were multiple periarticular osteophytes which were then removed with a Ronguer. The femoral canal was then opened with the appropriate drill, and the intramedullary femoral cutting guide was then placed and set for 4 of valgus. The distal femoral cutting block was then pinned in place, and the distal femur was then cut. The cutting block was then removed and the cut was checked for flatness. Next, the sizing guide was then placed and set for 3 external rotation based off of the epicondylar axis and Whitesides line. After the femur was sized, the appropriate 4-in-1 cutting block was then pinned in place. The anterior condyles were cut without notching. The posterior and chamfer cuts were performed while protecting the collateral ligaments. The cutting block was then removed. Attention was then directed to the tibia. The remaining ACL was removed with a Ronguer, and the tibia was then gently subluxed forward with a large bent knee retractor. Any remaining menisci was excised. The posterior lateral corner was cauterized in order to cauterize the lateral geniculate artery. The extra medullary tibial cutting guide was then placed, set for the appropriate r otation, slope, and depth of resection. The proximal tibia cutting guide was then pinned in place. Proximal tibia was then cut and sized. Next trials were then placed with the appropriate-sized insert. The knee was found to be grossly unstable and at this point it was determined to proceed on with a constrained knee. The trials were removed, the canals were then reamed to the appropriate size for both the femur and the tibia. The appropriate constrained trials were then placed. The knee was able to fully extend and flex to 130 and was stable throughout all range of motion. There was no hyperextension. The knee was then extended, patella everted. Patella was then measured, and then using an osteotomy guide, the patella was cut at the appropriate level. The patella was then measured and drilled and the patella trial was then placed. The knee was then taken through range of motion with the patella trial and the patella tracked normally. The knee was then extended patella trial was then removed and the patella was everted. Knee was then flexed and lug holes were drilled through the femoral trial and the femoral trial was then removed. The tibial was then exposed, and the tibial broach guide was then pinned in place after it was set for the appropriate rotation to allow for the most coverage without overhang. The tibia was then reamed and broached. The cut surfaces of bone were then irrigated with pulsatile lavage. The posterior structures were injected with the ropivacaine solution. The knee was also irrigated with Irrisept solution. The components were then opened, the cement was mixed, and the components were then cemented in place. The cement was allowed to harden with the knee in full extension. While the cement was hardening, the remaining soft tissues were then injected with a ropivacaine solution, which consisted of 246.25 mg of ropivacaine, 0.5 mg of epinephrine, 30 mg of Toradol, 80 g of clonidine, and 48.45 mL of sterile water, for a total of 100 mL of fluid injected. After the cemented hardened. The tourniquet was released, and hemostasis was obtained. A second gram of transexamic acid was given. The knee was again irrigated. The knee was again taken through range of motion and found to be stable throughout all range of motion of 0-130, and the patella tracked normally. The fascia was then closed with #2 strata fix suture. The subcutaneous tissue was closed with 3-0 Vicryl and 3-0 strata fix. Dermabond glue was used for the skin and placed with the knee in flexion. The patient was placed in a sterile silver dressing. Patient was then transferred to recovery room in stable condition. The assistant professor nurse education Maeve Kilpatrick NP was required due the complexity surgery and the need for a skilled child nutrition assistant. She assisted in positioning, draping, retraction, and closure of the wound.
[2019-05-26] MEDS ORDERED: NA PHOS,M-B/NA PHOS,DI-BA 133 ML ENEMA RECTAL PRN (09:56)
[2019-05-26] MEDS ORDERED: BISACODYL 10 MG SUPP RECTAL PRN (09:56)
[2019-05-26] MEDS ORDERED: HYDROcodone/APAP 5-325MG 1 EACH TAB PO PRN ×2 (09:56)
[2019-05-26] MEDS ORDERED: ONDANSETRON 4 MG/2 ML VIAL IVP PRN (09:56)
[2019-05-26] MEDS ORDERED: TEMAZEPAM 15 MG CAP PO PRN (09:56)
[2019-05-26] MEDS ORDERED: NALOXONE 0.4 MG/ML 1 ML VIAL IV PRN (09:56)
[2019-05-26] MEDS ORDERED: MAGNESIUM HYDROXIDE 2,400 MG/10 ML CUP PO PRN (09:56)
[2019-05-26] MEDS ORDERED: hydrOXYzine PAMOATE 25 MG CAP PO PRN (09:56)
[2019-05-26] MEDS ORDERED: HYDROcodone/APAP 7.5-325MG 1 EACH TAB PO PRN (10:01)
[2019-05-26] MEDS: LACTATED RINGERS 1,000 ML IV SCH ×3 (10:13→20:43)
--- NOTE | 2019-05-26 10:15 | XR ---
EXAMINATION TYPE: XR knee limited RT DATE OF EXAM: 05/26/2019 CLINICAL HISTORY: Right knee pain and arthritis status post total knee replacement. TECHNIQUE: Portable AP and crosstable lateral views of the right knee are obtained immediately posto peratively. COMPARISON: 07/05/2015 FINDINGS: Metallic hardware from total right knee arthroplasty is seen and appears satisfactory in a lignment and position. There is evidence of recent surgery with diffuse subcutaneous and soft tissue swelling noted. Old fracture fragments are well-corticated from the prior fracture dislocation in 20 16. IMPRESSION: METALLIC HARDWARE FROM TOTAL RIGHT KNEE ARTHROPLASTY IS SATISFACTORY IN ALIGNMENT.
[2019-05-26] MEDS: HYDROmorphone 1 MG/ML 1 ML SYRINGE IVP PRN ×3 (11:11→17:55)
[2019-05-26] MEDS: HYDROcodone/APAP 7.5-325MG 1 EACH TAB PO PRN ×2 (15:33→20:58)
[2019-05-26] MEDS ORDERED: BUTALB/APAP/CAFF 50-325-40MG TAB PO PRN (18:11)
[2019-05-26] MEDS ORDERED: ALPRAZolam 0.5 MG TAB PO PRN (18:11)
[2019-05-26 19:23] VITALS: RESP 16
--- NOTE | 2019-05-26 19:44 | P.CONS ---
History of Present Illness - Reason for Consult Consult date: 05/26/19 Medical management Requesting physician: Andrei Hernandez - Chief Complaint Post right total knee arthroplasty, hypertension, chronic lower back pain, - History of Present Illness 48-year-old female one of Dr. Coon patient with past medical history of mild obesity, fibromyalgia, hypertension hyperlipidemia who apparently had a fall injury 4 years ago and had torn meniscus and patella injury of the right knee ended up having conservative management and went [facility] for consultation was told because of her age she would not be a candidate for surgery. Patient has been using knee brace since was seen Dr. Pelayo and plan for elective right total knee arthroplasty. Patient was switched to Dr. Hernandez service and had right total knee arthroplasty this morning with Dr. Hernandez successfully was admitted to the floor afterward hemodynamically stable she is on pain management system resume her home meds and no major complaint otherwise. Review of Systems CONSTITUTIONAL: Well-developed no acute respiratory distress. EYES: No icterus sclerae, no conjunctivitis. EARS, NOSE, MOUTH, THROAT, and FACE: No sore throat, lymphadenopathy, carotid bruits or deformity. RESPIRATORY: No SOB cough or wheezes. CARDIOVASCULAR: No CP, Palpitation, PND, Orthopnea, or angina. GASTROINTESTINAL: No Abd pain, Nausea or vomiting, no Diarrhea or constipation, No GI Bleed, no distention or masses. GENITOURINARY: Negative for Hematuria or UTI, no kidney stones. INTEGUMENT/BREAST: Negative for any muscular injury with mild osteoarthritis.. And right knee pain. HEMATOLOGIC/LYMPHATIC: Negative for bleed or purpura. MUSCULOSKELTAL: Negative for Myalgia or arthralgia. NEURLOGICAL: No LOC, Sz or syncope, blurred vision dizziness or abnormality.. BEHAVIORAL/PSYCH: Negative. ENDOCRINE: Negative. Past Medical History Past Medical History: Fibromyalgia, Hearing Disorder / Deafness, Hyperlipidemia, Osteoarthritis (OA) Additional Past Medical History / Comment(s): Chronic back pain. 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 loss History of Any Multi-Drug Resistant Organisms: None Reported Past Surgical History: Ear Surgery, Orthopedic Surgery, Uterine Ablation Additional Past Surgical History / Comment(s): Left knee surgery, left rotator cuff repair, deviated septum repair, sinus surgery, LT ear surgery, bilateral carpal tunnel release, Past Anesthesia/Blood Transfusion Reactions: Motion Sickness, Postoperative Nausea & Vomiting (PONV) Past Psychological History: ADD/ADHD, Anxiety, Depression Smoking Status: Current every day smoker Past Alcohol Use History: None Reported Additional Past Alcohol Use History / Comment(s): STARTED SMOKING AGE 15 SMOKES 2 CIG PER DAY AT THIS TIME TRYING TO QUIT Past Drug Use History: Marijuana Additional Drug Use History / Comment(s): USE MARIJUANA AT TIMES-INSTRUCTED TO REFRAIN FROM USE FOR AT LEAST 24 HOURS PRIOR TO PROCEDURE - Past Family History Mother Family Medical History: No Reported History Medications and Allergies Home Medications Medication Instructions Recorded Confirmed Type Dextroamphetamine/Amphetamine 30 mg PO BID 04/14/15 05/26/19 History [Amphetamine Salts 30 mg Tablet] Loratadine 10 mg PO DAILY 04/14/15 05/26/19 History ALPRAZolam [Xanax] 2 mg PO TID PRN 06/13/16 05/26/19 History Hydrocodone/Acetaminophen [[place] 1 tab PO Q6H PRN 06/13/16 05/26/19 History 10-325] Losartan/Hydrochlorothiazide 1 tab PO DAILY 06/13/16 05/26/19 History [Hyzaar 50-12.5 Tablet] Butalb/Acetaminophen/Caffeine 1 - 2 cap PO Q4HR PRN 05/16/19 05/26/19 History [Fioricet 50-300-40 mg Capsule] Ibuprofen [Motrin] 800 mg PO Q6HR PRN 05/16/19 05/26/19 History Allergies Allergy/AdvReac Type Severity Reaction Status Date / Time No Known Allergies Allergy Verified 05/26/19 06:06 Physical Exam Vitals: Vital Signs Temp Pulse Pulse Resp BP Pulse Ox 05/26/19 19:22 98.3 F 80 16 157/122 95 05/26/19 14:50 98.2 F 102 H 17 117/66 95 05/26/19 13:15 105 H 145/73 94 L 05/26/19 13:00 98 119/83 93 L 05/26/19 12:45 88 118/76 94 L 05/26/19 12:30 94 126/83 96 05/26/19 12:15 81 123/78 95 05/26/19 12:00 92 107/73 94 L 05/26/19 11:45 84 117/74 93 L 05/26/19 11:30 93 129/57 93 L 05/26/19 11:15 76 189/79 95 05/26/19 11:00 97.7 F 70 16 118/73 95 05/26/19 10:33 69 18 111/72 95 05/26/19 10:15 67 18 113/56 95 05/26/19 10:00 71 18 122/59 97 05/26/19 09:52 97.8 F 70 16 115/56 97 05/26/19 06:59 73 16 133/74 97 05/26/19 06:04 97.8 F 74 16 109/61 94 L Intake and Output 05/26/19 05/26/19 05/26/19 06:59 14:59 22:59 Intake Total 150 801 Output Total 50 Balance 150 751 Intake: IV 150 801 Output: Estimated Blood Loss 50 Other: # Voids 1 Weight 112.491 kg General Appearance: Alert, cooperative, no distress, appears stated age. Moderately overweight Neck HEENT: Supple, no lymphadenopathy, no thyroid enlargement, no carotid bruits. Lungs: Clear to auscultation without crackles or wheezes no rhonchi, no deformity. Chest Wall: Chest wall normal expansion with deep inspiration no tenderness and no deformity was found on exam, no costochondral pain or discomfort. Heart: Regular rate and rhythm, S1, S2 normal, no murmur, rub or gallop. Back: Symmetric, no curvature, ROM normal, no CVA tenderness. Abdomen: Soft, non-tender, bowel sounds active all four quadrants, no masses, no organomegaly. Extremities: Trace edema, left knee has scar tissue from previous total knee arthroplasty, right knee incision looks fine with no hematoma or bleeding no induration or redness. Pulses: 2+ and symmetric. Skin: Skin color, texture, tugor normal, no rashes or lesions. Neurologic: Alert oriented x3 cranial nerves II through XII intact, no motor deficit, no abnormal balance or gait. Assessment and Plan Plan: 1 post right total knee arthroplasty: Stable post surgery resume home meds, patient will be on aspirin for DVT prophylaxis, Pepcid for GI prophylaxis, we'll resume home meds and use incentive spirometry and early mobilization. 2 hypertension: Resume Hyzaar 50/12.5 g a day. 3 chronic history of fibromyalgia has been doing well lately. 4 ADD: Patient has been on Adderall which will be held for now. 5 chronic migraine and chronic pain syndrome: Has been on hydrocodone and Fioricet along with muscle relaxer will hold her pain meds at home and continue pain management in the hospital. 6 chronic anxiety and panic attack with mild PTSD: Patient remain on alprazolam reduce the dose from 2 mg 2.5 mg 3 times a day as needed. 7 DVT prophylaxis: Patient was started on aspirin 325 g twice a day for 4 weeks per orthopedic protocol. 8 GI prophylaxis: Patient will be on Pepcid 20 mg daily. CODE STATUS: Full code. Dr. Hernandez thank you much for the consult I can be any further help to please let me know
[2019-05-26] MEDS: ASPIRIN 325 MG TAB PO SCH (20:58)
[2019-05-26] MEDS ORDERED: SENNOSIDES-DOCUSATE SODIUM 1 EACH TAB PO SCH (21:00)
[2019-05-26] MEDS ORDERED: LORATADINE 10 MG TAB PO SCH (21:00)
[2019-05-26] MEDS: HYDROmorphone 0.5 MG/0.5 ML SYRINGE IVP PRN (23:05)
[2019-05-27] MEDS: HYDROcodone/APAP 7.5-325MG 1 EACH TAB PO PRN ×2 (03:14→08:29)
[2019-05-27] MEDS: LACTATED RINGERS 1,000 ML IV SCH ×2 (05:30→05:31)
[2019-05-27] MEDS: ASPIRIN 325 MG TAB PO SCH (07:29)
--- NOTE | 2019-05-27 07:39 | P.PN ---
Progress Note - Text Progress Note Date: 05/27/19 Patient complaining of 10/10 pain on anterior knee. Pain started last night. Some improvement with Gower. Right adductor canal catheter site clean and dry. POD#1 s/p R TKA with R adductor canal catheter - Continue multimodal analgesia - May repeat adductor block +/- iPack if pt amenable
[2019-05-27 08:01] LABS: Basophils # (A) 0.1 k/uL (0-0.2); Basophils % (A) 1 %; Eosinophils # (A) 0.1 k/uL (0-0.7); Eosinophils % (A) 1 %; HCT 29.5 % (34.0-46.0); Lymphocytes # (A) 2.2 k/uL (1.0-4.8); Lymphocytes % (A) 28 %; MCH 31.2 pg (25.0-35.0); MCHC 32.6 g/dL (31.0-37.0); MCV 95.6 fL (80.0-100.0); Mean Platelet Volume 8.3; Monocytes # (A) 0.8 k/uL (0-1.0); Monocytes % (A) 10 %; Neutrophils # (A) 4.6 k/uL (1.3-7.7); Neutrophils % (A) 58 %; Platelet Count 251 k/uL (150-450); RBC 3.08 m/uL (3.80-5.40); RDW 13.9 % (11.5-15.5); WBC 7.9 k/uL (3.8-10.6)
[2019-05-27 08:02] LABS: HGB 9.6 gm/dL (11.4-16.0)
[2019-05-27 08:50] VITALS: BP 123/78; PULSE 82; TEMP 98.5
[2019-05-27] MEDS ORDERED: FAMOTIDINE 20 MG TAB PO SCH (09:00)
[2019-05-27] MEDS ORDERED: LOSARTAN-HCTZ 50-12.5 MG 1 EACH TAB PO SCH (09:00)
[2019-05-27] MEDS ORDERED: NICOTINE 14MG/24HR PATCH TRANSDERM SCH (09:00)
[2019-05-27] MEDS ORDERED: LORATADINE 10 MG TAB PO SCH (09:00)
--- NOTE | 2019-05-27 10:15 | P.DS ---
Providers Date of admission: 05/26/19 19:29 Expected date of discharge: 05/27/19 Attending physician: Andrei Hernandez Consults: 05/26/19 10:01 Consult Physician Routine Consulting Provider: Felipe Luna Reason/Comments: medical management Do you want consulting provider notified?: Yes Primary care physician: Giorgio Coon - Discharge Diagnosis(es) (1) Osteoarthritis of right knee Current Visit: Yes Status: Acute (2) Status post total right knee replacement Current Visit: Yes Status: Acute Hospital Course: This is a 48-year-old female who was last seen with complaint of continued right knee pain. The patient has a known history of degenerative arthritis of the right knee and presents to discuss surgical options. After discussion and consideration the patient elects to proceed with total right knee arthroplasty. The patient is seen preoperatively by her primary care physician and cleared for surgery. The patient is admitted to [facility] for total right knee arthroplasty. The procedures performed without complication or sequelae. Patient is doing well postoperatively. Vital signs are stable at discharge. Labs are stable at discharge. the patient is ambulating well with walker with minimal assistance. The patient is discharged to home on postop day #1 pending medical clearance. Please see orders and refer to the med rec for accurate list of medications. Patient Condition at Discharge: Good Plan - Discharge Summary Discharge Rx Participant: No New Discharge Prescriptions: New Sennosides-Docusate Sodium [Senokot-S] 1 tab PO BID #60 tablet Ketorolac [Toradol] 10 mg PO Q6HR PRN #20 tab PRN Reason: Pain Aspirin 325 mg PO BID #60 tab No Action Loratadine 10 mg PO DAILY Dextroamphetamine/Amphetamine [Amphetamine Salts 30 mg Tablet] 30 mg PO BID ALPRAZolam [Xanax] 2 mg PO TID PRN PRN Reason: Anxiety Losartan/Hydrochlorothiazide [Hyzaar 50-12.5 Tablet] 1 tab PO DAILY Hydrocodone/Acetaminophen [[place] 10-325] 1 tab PO Q6H PRN PRN Reason: Pain Butalb/Acetaminophen/Caffeine [Fioricet 50-300-40 mg Capsule] 1 - 2 cap PO Q4 HR PRN PRN Reason: HEADACHES Ibuprofen [Motrin] 800 mg PO Q6HR PRN PRN Reason: Pain Discharge Medication List Dextroamphetamine/Amphetamine [Amphetamine Salts 30 mg Tablet] 30 mg PO BID 04/14/15 [History] Loratadine 10 mg PO DAILY 04/14/15 [History] ALPRAZolam [Xanax] 2 mg PO TID PRN 06/13/16 [History] Hydrocodone/Acetaminophen [[place] 10-325] 1 tab PO Q6H PRN 06/13/16 [History] Losartan/Hydrochlorothiazide [Hyzaar 50-12.5 Tablet] 1 tab PO DAILY 06/13/16 [History] Butalb/Acetaminophen/Caffeine [Fioricet 50-300-40 mg Capsule] 1 - 2 cap PO Q4HR PRN 05/16/19 [History] Ibuprofen [Motrin] 800 mg PO Q6HR PRN 05/16/19 [History] Aspirin 325 mg PO BID #60 tab 05/27/19 [Rx] Ketorolac [Toradol] 10 mg PO Q6HR PRN #20 tab 05/27/19 [Rx] Sennosides-Docusate Sodium [Senokot-S] 1 tab PO BID #60 tablet 05/27/19 [Rx] Follow up Appointment(s)/Referral(s): Andrei Hernandez DO [Doctor of Osteopathic Medicine] - 06/11/19 10:00 am [facility] Visiting Nurse, [NON-STAFF] - Ambulatory/Diagnostic Orders: Continuous Passive Motion (CPM) Machine [DME.AMB1] Time Frame: 3 Weeks, Facility: [facility], Location: Case Management Activity/Diet/Wound Care/Special Instructions: *Please call [facility] once home to arrange delivery of Continuous Passive Motion (CPM) machine: [phone] May bear weight as tolerated with walker. May shower.
[2019-05-27] MEDS: HYDROmorphone 0.5 MG/0.5 ML SYRINGE IVP PRN (10:39)
--- NOTE | 2019-05-28 15:31 | P.PN ---
Subjective Progress Note Date: 05/27/19 48-year-old female one of Dr. Coon patient with past medical history of mild obesity, fibromyalgia, hypertension hyperlipidemia who apparently had a fall injury 4 years ago and had torn meniscus and patella injury of the right knee ended up having conservative management and went [facility] for consultation was told because of her age she would not be a candidate for surgery. Patient has been using knee brace since was seen Dr. Pelayo and plan for elective right total knee arthroplasty. Patient was switched to Dr. Hernandez service and had right total knee arthroplasty this morning with Dr. Hernandez successfully was admitted to the floor afterward hemodynamically stable she is on pain management system resume her home meds and no major complaint otherwise. 05/27: patient has been afebrile, heart rate 82, blood pressure 123/78, pulse ox 90% on room air. Patient states that she was awake all night not necessary due to pain but due to activity and noise on the unit. Pain is fairly well controlled to the knee today. She does have aQ-pump in place. Plan is for d ischarge home later today. Review of Systems CONSTITUTIONAL: Well-developed no acute respiratory distress. EYES: No icterus sclerae, no conjunctivitis. EARS, NOSE, MOUTH, THROAT, and FACE: No sore throat, lymphadenopathy, carotid bruits or deformity. RESPIRATORY: No SOB cough or wheezes. CARDIOVASCULAR: No CP, Palpitation, PND, Orthopnea, or angina. GASTROINTESTINAL: No Abd pain, Nausea or vomiting, no Diarrhea or constipation, No GI Bleed, no distention or masses. GENITOURINARY: Negative for Hematuria or UTI, no kidney stones. INTEGUMENT/BREAST: Negative for any muscular injury with mild osteoarthritis, mild right knee pain. HEMATOLOGIC/LYMPHATIC: Negative for bleed or purpura. MUSCULOSKELTAL: Negative for Myalgia or arthralgia. NEURLOGICAL: No LOC, Sz or syncope, blurred vision dizziness or abnormality.. BEHAVIORAL/PSYCH: Negative. ENDOCRINE: Negative. Objective - Vital Signs Vital signs: Vital Signs Temp 98.5 F 05/27/19 07:00 Pulse 82 05/27/19 07:00 Resp 16 05/27/19 07:00 BP 123/78 05/27/19 07:00 Pulse Ox 98 05/27/19 07:00 Intake & Output 05/26/19 05/27/19 05/27/19 18:59 06:59 18:59 Intake Total 801 Output Total 50 Balance 751 Weight 112.491 kg Intake: IV 801 Output: Estimated Blood Loss 50 Other: Voiding Method Toilet # Voids 1 4 - Exam General Appearance: Alert, cooperative, no distress, appears stated age. Moderately overweight Neck HEENT: Supple, no lymphadenopathy, no thyroid enlargement, no carotid bruits. Lungs: Clear to auscultation without crackles or wheezes no rhonchi, no deformity. Chest Wall: Chest wall normal expansion with deep inspiration no tenderness and no deformity was found on exam, no costochondral pain or discomfort. Heart: Regular rate and rhythm, S1, S2 normal, no murmur, rub or gallop. Back: Symmetric, no curvature, ROM normal, no CVA tenderness. Abdomen: Soft, non-tender, bowel sounds active all four quadrants, no masses, no organomegaly. Extremities: Trace edema, left knee has scar tissue from previous total knee arthroplasty, right knee incision with small dressing in place, no significant drainage or bleeding. Pulses: 2+ and symmetric. Skin: Skin color, texture, tugor normal, no rashes or lesions. Neurologic: Alert oriented x3 cranial nerves II through XII intact, no motor deficit, no abnormal balance or gait. - Labs CBC & Chem 7: 05/27/19 07:13 Labs: Abnormal Lab Results - Last 24 Hours (Table) 05/27/19 Range/Units 07:13 RBC 3.08 L (3.80-5.40) m/uL Hgb 9.6 L D (11.4-16.0) gm/dL Hct 29.5 L (34.0-46.0) % Assessment and Plan Plan: Assessment and Plan Plan: 1 post right total knee arthroplasty, postop day #1: Stable post surgery resume home meds, patient will be on aspirin for DVT prophylaxis, Pepcid for GI prophylaxis, we'll resume home meds and use incentive spirometry and early mobilization. 2 hypertension: Resume Hyzaar 50/12.5 g a day. 3 chronic history of fibromyalgia has been doing well lately. 4 ADD: Patient has been on Adderall which will be held for now. 5 chronic migraine and chronic pain syndrome: Has been on hydrocodone and Fioricet along with muscle relaxer will hold her pain meds at home and continue pain management in the hospital. 6 chronic anxiety and panic attack with mild PTSD: Patient remain on alprazolam reduce the dose from 2 mg 2.5 mg 3 times a day as needed. 7 DVT prophylaxis: Patient was started on aspirin 325 g twice a day for 4 weeks per orthopedic protocol. 8 GI prophylaxis: Patient will be on Pepcid 20 mg daily. CODE STATUS: Full code. Dr. Hernandez thank you much for the consult I can be any further help to please let me know Discharge plan: Home Impression and plan of care have been directed as dictated by the signing physician. Carissa Juarez nurse practitioner acting as scribe for signing physician.
== END 2019-05-27 11:04 | disposition home health service (06) ==
LOC: OR 05:32 → 4SSUR 10:10 → OR 19:29 → 4SSUR 19:29
PROVIDERS: ADMIT Orthopaedic Surgery; ATTEND Orthopaedic Surgery
DX: M17.11 Unilateral primary osteoarthritis, right knee (principal); M25.361 Other instability, right knee; I10 Essential (primary) hypertension; F32.9 Major depressive disorder, single episode, unspecified; M79.7 Fibromyalgia; R26.81 Unsteadiness on feet; E78.5 Hyperlipidemia, unspecified; H91.92 Unspecified hearing loss, left ear; F90.9 Attention-deficit hyperactivity disorder, unspecified type; F41.9 Anxiety disorder, unspecified; G43.909 Migraine, unspecified, not intractable, without status migrainosus; G89.4 Chronic pain syndrome; F41.0 Panic disorder [episodic paroxysmal anxiety]; F43.10 Post-traumatic stress disorder, unspecified; F17.210 Nicotine dependence, cigarettes, uncomplicated; E66.9 Obesity, unspecified; Z68.38 Body mass index [BMI] 38.0-38.9, adult; Z87.828 Personal history of other (healed) physical injury and trauma; Z79.1 Long term (current) use of non-steroidal anti-inflammatories (NSAID); Z79.899 Other long term (current) drug therapy; Z79.891 Long term (current) use of opiate analgesic; Z86.69 Personal history of other diseases of the nervous system and sense organs; Z98.890 Other specified postprocedural states; Z82.49 Family history of ischemic heart disease and other diseases of the circulatory system; Z87.898 Personal history of other specified conditions; Z91.89 Other specified personal risk factors, not elsewhere classified
CPT/HCPCS: 27445; 97116; 97161; 81025; 64448; 76942; 85025; 88300; 73560; G0378 ×2; C1713; C1776; S4990; J2250; J0171; J1100; J0690 ×3; J2405 ×2; J3010; J1885; J1170 ×3; J2795 ×2; J2704; J0735

== ENCOUNTER → 2019-11-12 | Outpatient (CLI) | payer OTHER ==
--- NOTE | 2019-11-12 15:24 | US ---
EXAMINATION TYPE: US thyroid st tissue head/neck DATE OF EXAM: 11/12/2019 COMPARISON: NONE CLINICAL HISTORY: E04.1 Nodule. Patient states doctor felt a lump. GLAND SIZE: Right Lobe: 5.0 x 2.1 x 2.2 cm Overall Parenchyma: heterogenous Left Lobe: 5.4 x 1.9 x 1.7 cm Overall Parenchyma: heterogeneous Isthmus Thickness: 0.4 cm NODULES RIGHT: # of nodules measured on right: 0 LEFT: # of nodules measured on left: 0 ISTHMUS: # of nodules measured in the isthmus: 0 Bilateral neck scanned, no evidence of lymphadenopathy. IMPRESSION: Thyroid enlargement with heterogeneity. Correlate with function testing and physical exam findings. N o distinct nodule appreciated.
== END | disposition home or self-care (01) ==
LOC: RADUSWWP 14:41
PROVIDERS: ATTEND Family Medicine
DX: E04.9 Nontoxic goiter, unspecified (principal)
CPT/HCPCS: 76536

== ENCOUNTER → 2019-11-12 | Outpatient (CLI) | payer OTHER | END | disposition home or self-care (01) | LOC: LABWHC1 14:31 | PROVIDERS: ATTEND Nurse Practitioner Acute Care | DX: I49.9 Cardiac arrhythmia, unspecified (principal) | CPT/HCPCS: 36415; 93005 ==

== ENCOUNTER → 2020-01-30 | Outpatient (CLI) | payer OTHER ==
--- NOTE | 2020-01-30 14:31 | XR ---
EXAMINATION TYPE: XR ankle complete LT DATE OF EXAM: 01/30/2020 COMPARISON: NONE HISTORY: Pain TECHNIQUE: 3 views of the left ankle are submitted for evaluation. FINDINGS: There is no evidence for fracture or dislocation. Well-corticated ossific densities adjacen t to the medial malleolar tip likely reflecting remote avulsion injury. Ankle mortise is intact. Soft tissues are within normal limits. IMPRESSION: 1. No evidence for acute fracture.
== END | disposition home or self-care (01) ==
LOC: RADXRMAIN 13:38
PROVIDERS: ATTEND Family Medicine
DX: M25.572 Pain in left ankle and joints of left foot (principal)

== ENCOUNTER → 2020-04-06 | Outpatient (CLI) | payer OTHER ==
--- NOTE | 2020-04-07 13:58 | MM ---
Reason for exam: screening (asymptomatic). Last mammogram was performed 1 year and 6 months ago. Physical Findings: A clinical breast exam by your physician is recommended on an annual basis and results should be correlated with mammographic findings. MG Screening Mammo w CAD Bilateral CC and MLO view(s) were taken. Prior study comparison: October 02, 2018, bilateral MG screening mammo w CAD. April 03, 2017, bilateral MG screening mammo w CAD. There are scattered fibroglandular densities. No significant changes when compared with prior studies. ASSESSMENT: Benign, BI-RAD 2 RECOMMENDATION: Routine screening mammogram of both breasts in 1 year.
== END | disposition home or self-care (01) ==
LOC: RADMAMWWP 13:17
PROVIDERS: ATTEND Family Medicine
DX: Z12.31 Encounter for screening mammogram for malignant neoplasm of breast (principal)
CPT/HCPCS: 77067

== ENCOUNTER → 2020-07-09 | Outpatient (CLI) | payer OTHER | END | disposition home or self-care (01) | LOC: LABWHC1 08:22 | PROVIDERS: ATTEND Nurse Practitioner Acute Care | DX: I49.9 Cardiac arrhythmia, unspecified (principal) | CPT/HCPCS: 36415; 93005 ==

== ENCOUNTER → 2020-07-09 | Outpatient (CLI) | payer OTHER ==
--- NOTE | 2020-07-09 11:03 | US ---
EXAMINATION TYPE: US abdomen limited DATE OF EXAM: 07/09/2020 COMPARISON: None CLINICAL HISTORY: 49-year-old female R10.84 abdominal pain. RUQ pain. TECHNIQUE: Multiple sonographic images of the right upper quadrant were obtained. FINDINGS: EXAM MEASUREMENTS: Liver Length: 21.5 cm Gallbladder Wall: 0.3 cm CBD: 0.4 cm Right Kidney: 12.4 x 5.3 x 4.9 cm Pancreas: Most of the pancreas is visualized and shows no gross abnormality. Liver: Enlarged without focal lesion. Gallbladder: wnl Evidence for sonographic Pelayo's sign: neg CBD: wnl Right Kidney: No hydronephrosis. IMPRESSION: 1. Hepatomegaly at 21.5 cm. 2. No gallstones or biliary ductal dilatation.
== END | disposition home or self-care (01) ==
LOC: RADUSWWP 08:18
PROVIDERS: ATTEND Family Medicine
DX: R16.0 Hepatomegaly, not elsewhere classified (principal); R10.84 Generalized abdominal pain
CPT/HCPCS: 76705

== ENCOUNTER → 2021-02-23 | Outpatient (CLI) | payer OTHER ==
[2021-02-23 14:28] LABS: Basophils # (A) 0.1 k/uL (0-0.2); Basophils % (A) 1 %; Eosinophils # (A) 0.2 k/uL (0-0.7); Eosinophils % (A) 2 %; HCT 43.8 % (34.0-46.0); HGB 14.1 gm/dL (11.4-16.0); Lymphocytes # (A) 2.5 k/uL (1.0-4.8); Lymphocytes % (A) 20 %; MCH 30.5 pg (25.0-35.0); MCHC 32.2 g/dL (31.0-37.0); MCV 94.6 fL (80.0-100.0); Mean Platelet Volume 8.6; Monocytes # (A) 0.7 k/uL (0-1.0); Monocytes % (A) 6 %; Neutrophils # (A) 8.9 k/uL (1.3-7.7); Neutrophils % (A) 71 %; Platelet Count 296 k/uL (150-450); RBC 4.63 m/uL (3.80-5.40); RDW 13.7 % (11.5-15.5); WBC 12.5 k/uL (3.8-10.6)
[2021-02-23 14:37] LABS: African American GFR (CKD) >90 (>60 ml/min/1.73 sqM); Anion Gap 12 mmol/L; Blood Urea Nitrogen 18 mg/dL (7-17); Calcium 9.9 mg/dL (8.4-10.2); Carbon Dioxide 20 mmol/L (22-30); Chloride 100 mmol/L (98-107); Glucose 101 mg/dL (74-99); Non-African American GFR(CKD) >90 (>60 ml/min/1.73 sqM); Potassium 4.1 mmol/L (3.5-5.1); Sodium 132 mmol/L (137-145)
== END | disposition home or self-care (01) ==
LOC: LABPAT 12:37
PROVIDERS: ATTEND Obstetrics & Gynecology
DX: Z01.812 Encounter for preprocedural laboratory examination (principal)
CPT/HCPCS: 36415; 80048; 85025

== ENCOUNTER 2021-03-03 05:43 | Day surgery (SDC) | payer OTHER ==
[2021-02-28 11:07] VITALS: BMI 39.1
[2021-03-03] MEDS ORDERED: HYDROmorphone 0.5 MG/0.5 ML SYRINGE IVP PRN (05:44)
[2021-03-03] MEDS ORDERED: ONDANSETRON 4 MG/2 ML VIAL IVP ONE (05:44)
[2021-03-03] MEDS ORDERED: LIDOCAINE 1% (10MG/ML) FOR IV START INTRADERMA PRN (05:44)
[2021-03-03] MEDS ORDERED: DEXAMETHASONE SOD PHOSPHATE 4 MG/ML 1 ML VIAL IV ONE (06:30)
[2021-03-03] MEDS: LACTATED RINGERS 1,000 ML IV SCH (06:30)
--- NOTE | 2021-03-03 06:47 | P.HPOB ---
History of Present Illness H&P Date: 03/03/21 Chief Complaint: DUB and pelvic pain 50 year old presents for [facility] BSO using da roberto and diagnostic cystoscopy. She had an endometrial ablation several years ago that worked for a while but she recently started having breakthrough bleeding. An endometrial biopsy showed polyps. She is also having pelvic pain and dyspareunia Review of Systems All systems: negative Constitutional: Denies chills, Denies fever Eyes: denies blurred vision, denies pain Ears, nose, mouth and throat: Denies headache, Denies sore throat Cardiovascular: Denies chest pain, Denies shortness of breath Respiratory: Denies cough Gastrointestinal: Denies abdominal pain, Denies diarrhea, Denies nausea, Denies vomiting Genitourinary: Denies dysuria, Denies hematuria Musculoskeletal: Denies myalgias Integumentary: Denies pruritus, Denies rash Neurological: Denies numbness, Denies weakness Psychiatric: Denies anxiety, Denies depression Endocrine: Denies fatigue, Denies weight change Past Medical History Past Medical History: Fibromyalgia, Hearing Disorder / Deafness, Hyperlipidemia, Hypertension, Osteoarthritis (OA) Additional Past Medical History / Comment(s): Chronic back pain. LT EAR 80% HEARING LOSS History of Any Multi-Drug Resistant Organisms: None Reported Past Surgical History: Ear Surgery, Joint Replacement, Orthopedic Surgery, Tonsillectomy, Uterine Ablation Additional Past Surgical History / Comment(s): Left knee surgery, left rotator cuff repair, deviated septum repair, sinus surgery, ear surgery, bilateral carpal tunnel release, RT TKA, COLONOSCOPY Past Anesthesia/Blood Transfusion Reactions: Motion Sickness, Postoperative Nausea & Vomiting (PONV) Past Psychological History: Anxiety Smoking Status: Current every day smoker Past Alcohol Use History: None Reported Past Drug Use History: None Reported - Past Family History Mother Family Medical History: No Reported History Medications and Allergies Home Medications Medication Instructions Recorded Confirmed Type Dextroamphetamine/Amphetamine 30 mg PO BID 04/14/15 02/28/21 History [Amphetamine Salts 30 mg Tablet] Loratadine 10 mg PO DAILY 04/14/15 02/28/21 History ALPRAZolam [Xanax] 2 mg PO TID PRN 06/13/16 02/28/21 History Hydrocodone/Acetaminophen [Imler 1 tab PO Q6H PRN 06/13/16 02/28/21 History 10-325] Losartan/Hydrochlorothiazide 1 tab PO DAILY 06/13/16 02/28/21 History [Hyzaar 50-12.5 Tablet] Ibuprofen [Motrin] 800 mg PO Q6HR PRN 05/16/19 02/28/21 History Sennosides-Docusate Sodium 1 tab PO BID #60 tablet 05/27/19 02/28/21 Rx [Senokot-S] Metoprolol Tartrate [Lopressor] 12.5 mg PO BID 02/28/21 02/28/21 History Allergies Allergy/AdvReac Type Severity Reaction Status Date / Time No Known Allergies Allergy Verified 03/03/21 06:02 Exam Osteopathic Statement: *. No significant issues noted on an osteopathic structural exam other than those noted in the History and Physical/Consult. Heart: Regular rate and rhythm Lungs: Clear to auscultation bilaterally Abdomen: Soft, nontender Extremities: Negative Homans sign Assessment and Plan (1) Dysfunctional uterine bleeding Current Visit: Yes Status: Acute Code(s): N93.8 - OTHER SPECIFIED ABNORMAL UTERINE AND VAGINAL BLEEDING SNOMED Code(s): 81180936890776 (2) Pelvic pain Current Visit: Yes Status: Acute Code(s): R10.2 - PELVIC AND PERINEAL PAIN SNOMED Code(s): 13991990 Plan: 1. Total laparoscopic hysterectomy with bilateral salpingo-oophorectomy using da Roberto and diagnostic cystoscopy
[2021-03-03] MEDS ORDERED: fentaNYL (PF) 50 MCG/ML 2 ML AMP IV ONE (06:51)
[2021-03-03] MEDS ORDERED: MIDAZOLAM 2 MG/2 ML VIAL IV ONE (06:51)
[2021-03-03] MEDS ORDERED: SODIUM CHLORIDE 0.9% (PF) 10 ML VIAL ONE (07:15)
[2021-03-03] MEDS ORDERED: fentaNYL (PF) 50 MCG/ML 2 ML AMP ONE (07:15)
[2021-03-03] MEDS ORDERED: SUCCINYLCHOLINE CHLORIDE 100 MG/5 ML SYR IV ONE (07:15)
[2021-03-03] MEDS ORDERED: NEOSTIGMINE 1 MG/ML 10 ML VIAL ONE (07:15)
[2021-03-03] MEDS ORDERED: KETOROLAC 15 MG/ML 1 ML VIAL ONE (07:15)
[2021-03-03] MEDS ORDERED: PROPOFOL 10 MG/ML 20 ML VIAL IV ONE (07:15)
[2021-03-03] MEDS ORDERED: MIDAZOLAM 2 MG/2 ML VIAL ONE (07:15)
[2021-03-03] MEDS ORDERED: ROCURONIUM 10 MG/ML (5 ML VIAL) IV ONE (07:15)
[2021-03-03] MEDS ORDERED: HYDROmorphone (PF) 1 MG/ML ONE (07:15)
[2021-03-03] MEDS ORDERED: LIDOCAINE 1% INJ 10MG/ML (20 ML MDV) ONE (07:15)
[2021-03-03] MEDS ORDERED: ROPIVACAINE 5 MG/ML 30 ML VIAL ONE (07:15)
[2021-03-03] MEDS ORDERED: GLYCOPYRROLATE 0.2 MG/ML 2 ML VIAL ONE (07:15)
[2021-03-03] MEDS ORDERED: DEXAMETHASONE SOD PHOSPHATE 4 MG/ML 1 ML VIAL ONE (07:15)
[2021-03-03] MEDS ORDERED: BUPIVACAINE (PF) 0.25% 30 ML VIAL SQ ONE ×2 (07:41→08:23)
[2021-03-03] MEDS ORDERED: LACTATED RINGERS 1,000 ML IV ONE (08:30)
--- NOTE | 2021-03-03 08:33 | P.OP ---
Date of Procedure: 03/03/21 Preoperative Diagnosis: 1. DUB 2. pelvic pain Postoperative Diagnosis: 1. DUB 2. pelvic pain Procedure(s) Performed: Laparoscopic hysterectomy and bilateral salpingo-oophorectomy using da Checo and diagnostic cystoscopy. Anesthesia: GENARO Surgeon: Mary Leggett Blending Machine Feeder #1: Alberto Mejia Estimated Blood Loss (ml): 10 IV fluids (ml): 500 Urine output (ml): 160 Pathology: other (Uterus, cervix, bilateral tubes and ovaries) Condition: stable Disposition: PACU Operative Findings: Normal uterus, tubes, ovaries. Description of Procedure: Patient taken the operating room where general anesthesia was obtained without difficulty. She is prepped and draped in normal sterile fashion dorsal lithotomy position, legs placed in the Xavier stirrups. Weighted speculum placed in the vagina and the anterior lip the cervix was grasped with single-tooth tenaculum. The uterus sounded to 8 cm and the cervix diameter was 3 cm. The appropriate manipulator tip and ring were placed on the Kimberly manipulator. The Kimberly manipulator was then placed in the uterus. Steward catheter was also placed. Attention was then turned to the abdomen and gloves were changed. A 5 mm supraumbilical incision was made the scalpel and a 5 mm optical trocar was placed under direct visualization. 10 cm to the right of this and 2 cm down a 5 mm incision was made and 8 mm da Checo port was placed under direct visualization. Same measurements on the opposite side of the patient's abdomen, the 5 mm incision was made and 8 mm da Checo port was placed under direct visualization. In the left upper quadrant a 10 mm incision was made and a 10 mm optical trocar was placed under direct visualization. The 5 mm optical trocar was then replaced with the 8 mm da Checo camera port. [facility] The camera was introduced and then the monopolar curved scissor and [place] bipolar placed under direct visualization. I broke scrub and went to the physician console. The left infundibulopelvic ligament was cauterized with the [place] bipolar and cut with monopolar curved scissors. The left round ligament was cauterized with the [place] bipolar and cut with monopolar curved scissors. The posterior leaf of the broad ligament was taken down using the monopolar curved scissors. Anterior leaf of the broad ligament was then taken down using the monopolar curved scissors. The uterine artery was cauterized with the [place] bipolar and cut with monopolar curved scissors. The bladder flap was then started using the monopolar curved scissors. Attention was then turned to the right side of the patient's anatomy and the right infundibular pelvic ligament was cauterized with the [place] bipolar and cut with monopolar curved scissors. The right round ligament was cauterized with the [place] bipolar and cut with monopolar curved scissors. Posterior leaf of the broad ligament was taken down using the monopolar curved scissors and the anterior leaf was taken down using the monopolar curved scissors. The uterine artery was cauterized the [place] bipolar cut with monopolar curved scissors. The bladder flap was then finished on this side. Anterior colpotomy was made using the monopolar curved scissors. The rest of the uterus was from the vaginal cuff by following the ring around with the monopolar curved scissors through the uterosacral ligaments back to the anterior portion. Once the uterus and cervix were amputated they were pulled through the vaginal cuff. Hemostasis was assured. The instruments were changed for the Cardier forcep and the mayra suture cut. The vaginal cuff was then closed using 2-O stratafix barbed suture in a running fashion. Hemostasis was again assured and the pelvis was irrigated. All instruments were removed from the abdomen and the robot was undocked. I scrubbed back in to perform a cystoscopy. There were jets from both ureteral orifices. The abdominal incisions were closed with 4-0 Vicryl in a subcuticular fashion. Patient tolerated the procedure well, sponge and instrument counts correct 2 and she was taken to recovery room in stable condition condition
--- NOTE | 2021-03-03 08:43 | P.ANPRN ---
Procedure Note - Anesthesia - Nerve Block Performed Bilateral Erector Spinae Single Time Out Performed: Yes Date of Procedure: 03/03/21 Procedure Start Time: 06:50 Procedure Stop Time: 07:02 Location of Patient: PreOp Indication: Requested by Surgeon Specifically requested for management of pain by DrPlacido: Mary Leggett Sedation Type: Sedate with meaningful contact maintained Preparation: Sterile Prep Position: Prone Needle Types: Pajunk Needle Gauge: 21 Ultrasound used to visualize needle placement: Yes Ultrasound used to observe medication spread: Yes Injectate: 0.5% Ropivacaine (see comment for volume) (15 ml +4 mg Dexamethasone +15 Ml NS 0.9 % per side) Blood Aspirated: No Pain Paresthesia on Injection Noted: No Resistance on Injection: Normal Image Stored and Saved: Yes Events: Uneventful and Well Tolerated
[2021-03-03] MEDS ORDERED: ONDANSETRON 4 MG/2 ML VIAL ONE (09:00)
[2021-03-03] MEDS ORDERED: diphenhydrAMINE 50 MG/ML 1 ML VIAL ONE (09:23)
[2021-03-03] MEDS ORDERED: diphenhydrAMINE 50 MG/ML 1 ML VIAL IVP ONE ×2 (09:28)
[2021-03-03] MEDS ORDERED: SIMETHICONE 80 MG CHEWABLE PO PRN (10:17)
[2021-03-03] MEDS ORDERED: LORATADINE 10 MG TAB PO SCH (10:17)
[2021-03-03] MEDS ORDERED: ONDANSETRON 4 MG/2 ML VIAL IVP PRN (10:17)
[2021-03-03] MEDS ORDERED: LOSARTAN-HCTZ 50-12.5 MG 1 EACH TAB PO SCH (10:17)
[2021-03-03] MEDS ORDERED: KETOROLAC 15 MG/ML 1 ML VIAL IVP PRN (10:17)
[2021-03-03] MEDS ORDERED: ALPRAZolam 1 MG TAB PO PRN (10:17)
[2021-03-03] MEDS ORDERED: METOCLOPRAMIDE 5 MG/ML 2 ML VIAL IVP PRN (10:17)
[2021-03-03] MEDS: HYDROcodone/APAP 10-325MG 1 EACH TAB PO PRN ×2 (12:32→20:06)
[2021-03-03] MEDS: AMPHETAMINE PO SCH ×2 (12:35→20:02)
[2021-03-03] MEDS: [UNRECOGNIZED DRUG - OTHER] PO SCH ×2 (12:35→20:02)
[2021-03-03] MEDS: DEXTROAMPHETAMINE PO SCH ×2 (12:35→20:02)
[2021-03-03] MEDS: SENNOSIDES-DOCUSATE SODIUM 1 EACH TAB PO SCH ×2 (12:36→21:21)
[2021-03-03] MEDS: METOPROLOL TARTRATE 12.5 MG TAB PO SCH ×2 (12:36→21:23)
[2021-03-03] MEDS ORDERED: NICOTINE 21MG/24HR PATCH TRANSDERM SCH (15:00)
[2021-03-03] MEDS: IBUPROFEN 800 MG TAB PO PRN (15:34)
[2021-03-03 20:29] VITALS: RESP 16
[2021-03-03] MEDS ORDERED: CALCIUM CARBONATE 500 MG CHEWABLE PO PRN (23:19)
[2021-03-04] MEDS: HYDROcodone/APAP 10-325MG 1 EACH TAB PO PRN (04:19)
[2021-03-04 04:36] VITALS: PULSE 79
[2021-03-04] MEDS: LACTATED RINGERS 1,000 ML IV SCH (05:22)
[2021-03-04 07:07] LABS: Basophils % (A) 0 %; Eosinophils # (A) 0.1 k/uL (0-0.7); Eosinophils % (A) 1 %; HCT 38.4 % (34.0-46.0); HGB 12.5 gm/dL (11.4-16.0); Lymphocytes # (A) 2.7 k/uL (1.0-4.8); Lymphocytes % (A) 22 %; MCH 30.6 pg (25.0-35.0); MCHC 32.6 g/dL (31.0-37.0); MCV 93.9 fL (80.0-100.0); Monocytes # (A) 0.6 k/uL (0-1.0); Monocytes % (A) 5 %; Neutrophils # (A) 8.5 k/uL (1.3-7.7); Neutrophils % (A) 70 %; Platelet Count 291 k/uL (150-450); RBC 4.09 m/uL (3.80-5.40); RDW 13.5 % (11.5-15.5); WBC 12.1 k/uL (3.8-10.6)
[2021-03-04] MEDS: IBUPROFEN 800 MG TAB PO PRN (07:28)
--- NOTE | 2021-03-04 07:34 | P.DS ---
Providers Expected date of discharge: 03/04/21 Attending physician: Mary Leggett Primary care physician: Giorgio Coon - Discharge Diagnosis(es) (1) Dysfunctional uterine bleeding Current Visit: Yes Status: Resolved (2) Pelvic pain Current Visit: Yes Status: Resolved (3) History of robot-assisted laparoscopic hysterectomy Current Visit: Yes Status: Acute Hospital Course: Patient presented for TLHBSO using da Checo and diagnostic cystoscopy. She underwent this procedure without complication. Postoperatively her pain is well-controlled, she is tolerating regular diet and passing flatus. Patient denies nausea, vomiting, chest pain, shortness of breath or any calf pain. She'll be discharged home postoperative day #1 in stable condition to follow-up with me in 3 weeks. Plan - Discharge Summary Discharge Rx Participant: No New Discharge Prescriptions: No Action Loratadine 10 mg PO DAILY Dextroamphetamine/Amphetamine [Amphetamine Salts 30 mg Tablet] 30 mg PO BID ALPRAZolam [Xanax] 2 mg PO TID PRN PRN Reason: Anxiety Losartan/Hydrochlorothiazide [Hyzaar 50-12.5 Tablet] 1 tab PO DAILY Hydrocodone/Acetaminophen [Benton 10-325] 1 tab PO Q6H PRN PRN Reason: Pain Ibuprofen [Motrin] 800 mg PO Q6HR PRN PRN Reason: Pain Sennosides-Docusate Sodium [Senokot-S] 1 tab PO BID #60 tablet Metoprolol Tartrate [Lopressor] 12.5 mg PO BID Discharge Medication List Dextroamphetamine/Amphetamine [Amphetamine Salts 30 mg Tablet] 30 mg PO BID 04/14/15 [History] Loratadine 10 mg PO DAILY 04/14/15 [History] ALPRAZolam [Xanax] 2 mg PO TID PRN 06/13/16 [History] Hydrocodone/Acetaminophen [Benton 10-325] 1 tab PO Q6H PRN 06/13/16 [History] Losartan/Hydrochlorothiazide [Hyzaar 50-12.5 Tablet] 1 tab PO DAILY 06/13/16 [History] Ibuprofen [Motrin] 800 mg PO Q6HR PRN 05/16/19 [History] Sennosides-Docusate Sodium [Senokot-S] 1 tab PO BID #60 tablet 05/27/19 [Rx] Metoprolol Tartrate [Lopressor] 12.5 mg PO BID 02/28/21 [History] Follow up Appointment(s)/Referral(s): Mary Leggett DO [Doctor of Osteopathic Medicine] - 3 Weeks Discharge Disposition: HOME SELF-CARE
[2021-03-04] MEDS ORDERED: ACETAMINOPHEN TAB 325 MG TAB PO PRN (08:35)
[2021-03-04 10:06] VITALS: BP 140/83; TEMP 97.4
== END 2021-03-04 08:00 | disposition home or self-care (01) ==
LOC: OR 05:43 → 4FBP 08:26 → OR 03-04 08:00
PROVIDERS: ATTEND Obstetrics & Gynecology
DX: N93.8 Other specified abnormal uterine and vaginal bleeding (principal); N72 Inflammatory disease of cervix uteri; N87.9 Dysplasia of cervix uteri, unspecified; R23.4 Changes in skin texture; M79.7 Fibromyalgia; H91.92 Unspecified hearing loss, left ear; Z20.822 Contact with and (suspected) exposure to COVID-19; E78.5 Hyperlipidemia, unspecified; I10 Essential (primary) hypertension; F41.9 Anxiety disorder, unspecified; M19.90 Unspecified osteoarthritis, unspecified site; G89.29 Other chronic pain; M54.9 Dorsalgia, unspecified; Z96.651 Presence of right artificial knee joint; Z98.890 Other specified postprocedural states; F17.200 Nicotine dependence, unspecified, uncomplicated; Z79.899 Other long term (current) drug therapy; N83.8 Other noninflammatory disorders of ovary, fallopian tube and broad ligament
CPT/HCPCS: 58571; S2900; 64999; 81025; 85025; 86850; 86900; 86901; 87635; 88307

== ENCOUNTER → 2021-11-09 | Outpatient (CLI) | payer OTHER ==
--- NOTE | 2021-11-09 15:03 | XR ---
EXAMINATION TYPE: XR chest 2V DATE OF EXAM: 11/09/2021 COMPARISON: Chest x-ray July 05, 2015 HISTORY: Bronchitis. TECHNIQUE: Frontal and lateral views of the chest are obtained. FINDINGS: There is no suspicious new focal air space opacity, pleural effusion, or pneumothorax seen . The cardiac silhouette size remains within normal limits. The osseous structures are intact. IMPRESSION: No acute pulmonary process.
== END | disposition home or self-care (01) ==
LOC: RADXRMAIN 14:27
PROVIDERS: ATTEND Family Medicine
DX: J40 Bronchitis, not specified as acute or chronic (principal)
CPT/HCPCS: 71046

== ENCOUNTER → 2022-02-23 | Outpatient (CLI) | payer OTHER | END | disposition home or self-care (01) | LOC: LABWHC1 14:46 | PROVIDERS: ATTEND Psychiatry & Neurology Neurology | DX: I49.9 Cardiac arrhythmia, unspecified (principal) | CPT/HCPCS: 36415; 93005 ==

== ENCOUNTER → 2022-08-24 | Outpatient (CLI) | payer OTHER ==
--- NOTE | 2022-08-24 19:06 | XR ---
EXAMINATION TYPE: XR Hip Bilateral Complete DATE OF EXAM: 08/24/2022 COMPARISON: NONE HISTORY: 51-year-old female M2 5.55 1. TECHNIQUE: 2 views each side FINDINGS: There is mild degenerative spurring of both hips. Some heterotopic ossification at the left iliopsoas insertion adjacent to the lesser trochanter. No acute fracture, subluxation, dislocation. IMPRESSION: Mild bilateral hip OA. No acute osseous abnormality seen.
== END | disposition home or self-care (01) ==
LOC: RADXRMAIN 14:25
PROVIDERS: ATTEND Family Medicine
DX: M16.0 Bilateral primary osteoarthritis of hip (principal)
CPT/HCPCS: 73521

== ENCOUNTER → 2023-03-21 | Outpatient (CLI) | payer OTHER ==
--- NOTE | 2023-03-22 10:48 | US ---
EXAMINATION TYPE: US thyroid st tissue head/neck DATE OF EXAM: 03/21/2023 COMPARISON: US CLINICAL INDICATION: Female, 52 years old with history of R22.0 LOCALIZED SWELLING, MASS AND LUMP, HE AD; Pt states difficulty swallowing, chronic cough GLAND SIZE: Right Lobe: 4.6 x 2.1 x 1.6 cm Overall Parenchyma: homogeneous Left Lobe: 4.7 x 1.8 x 1.6 cm Overall Parenchyma: homogeneous Isthmus Thickness: 0.3 cm NODULES RIGHT: # of nodules measured on right: 1 1. 0.9 X 0.6 x 0.7 cm, upper, solid or almost completely solid, isoechoic nodule, which is wider th an tall, with smooth margins, without echogenic foci. Prior size: Not visualized on prior LEFT: # of nodules measured on left: 0 ISTHMUS: # of nodules measured in the isthmus: 0 Bilateral neck scanned, no evidence of lymphadenopathy. Single, sub-centimeter nodule right thyroid. IMPRESSION: TR-RADS 3 - Mildly Suspicious: Follow if > 1.5 cm, FNA if > 2.5 cm
== END | disposition home or self-care (01) ==
LOC: RADUSWWP 15:41
PROVIDERS: ATTEND Family Medicine
DX: R22.0 Localized swelling, mass and lump, head (principal)
CPT/HCPCS: 76536

== ENCOUNTER → 2023-05-03 | Outpatient (CLI) | payer OTHER ==
--- NOTE | 2023-05-03 12:09 | XR ---
EXAMINATION TYPE: XR knee complete LT DATE OF EXAM: 05/03/2023 COMPARISON: 06/15/2016 HISTORY: Fisk pop in knee, pain TECHNIQUE: 3 view left knee FINDINGS: Tibial and femoral components are present. No acute fractures are evident. No joint effusio n is evident. Findings appear stable from comparison. IMPRESSION: 1. No acute osseous abnormality radiographically apparent.
== END | disposition home or self-care (01) ==
LOC: RADXRMAIN 11:47
PROVIDERS: ATTEND Family Medicine
DX: M17.12 Unilateral primary osteoarthritis, left knee (principal)

== ENCOUNTER → 2023-05-07 | Outpatient (CLI) | payer OTHER ==
--- NOTE | 2023-05-08 13:03 | NM ---
EXAMINATION TYPE: NM thyroid image only DATE OF EXAM: 05/07/2023 COMPARISON: NONE HISTORY: Nontoxic thyroid nodule Thyroid scanning was performed following the injection of 9.5 mCi technetium 99m pertechnetate. Image s were acquired post injection. FINDINGS: Thyroid glands appear symmetrical. No photopenic defects or hot nodules are. IMPRESSION: 1. No suspicious thyroid nodules
== END | disposition home or self-care (01) ==
LOC: RADNMMAIN 11:05
PROVIDERS: ATTEND Family Medicine
DX: E04.1 Nontoxic single thyroid nodule (principal)
CPT/HCPCS: 78013; A9512

== ENCOUNTER 2023-06-06 07:13 | Day surgery (SDC) | payer OTHER ==
[2023-06-04 11:15] VITALS: BMI 33.2
[~2023-06-06 07:13] MED LIST changes: -ACETAMINOPHEN TAB 500 MG TAB PO ONE; -GABAPENTIN 300 MG CAP PO ONE; +LIDOCAINE 1% (10MG/ML) FOR IV START INTRADERMA PRN; -MELOXICAM 7.5 MG TAB PO ONE; -TRANEXAMIC ACID 1,000 MG in SODIUM CHLORIDE 0.9% 100 ML IVPB ONE
[2023-06-06] MEDS: LACTATED RINGERS 1,000 ML IV SCH (07:48)
[2023-06-06] MEDS ORDERED: PROPOFOL 10 MG/ML 20 ML VIAL IV ONE (08:03)
[2023-06-06 08:06] VITALS: TEMP 97.9
--- NOTE | 2023-06-06 08:31 | P.PCN ---
Date of Procedure: 06/06/23 Procedure(s) Performed: BRIEF HISTORY: Patient is a 52-year-old pleasant white female scheduled for an elective colonoscopy as a part of screening for colon cancer. PROCEDURE PERFORMED: Colonoscopy. PREOPERATIVE DIAGNOSIS: Screening for colon cancer. IV sedation per Anesthesia. PROCEDURE: After informed consent was obtained, the patient, was brought into the endoscopy unit. IV sedation was administered by Anesthesia under continuous monitoring. Digital rectal examination was normal. Initially the Olympus CF-160 flexible video colonoscope was then inserted in the rectum, gradually advanced into the cecum without any difficulty. Careful examination was performed as the scope was gradually being withdrawn. Ileocecal valve and the appendiceal orifice were visualized and appeared normal. Prep was excellent. Mucosa of the cecum, ascending colon, transverse colon, descending colon, sigmoid colon, and rectum appeared normal. Scattered sigmoid diverticulosis. Retroflexion was performed in the rectum and no lesions were seen. The patient tolerated the procedure well. IMPRESSION: Normal-appearing colon from rectum to cecum with no evidence of colorectal neoplasia Scattered sigmoid diverticulosis. RECOMMENDATIONS: Findings of this examination were discussed with the patient as well as her family. She was advised to have a repeat screening colonoscopy in 10 years..
[2023-06-06 09:43] VITALS: BP 115/78; PULSE 78; RESP 18
== END 2023-06-06 09:23 | disposition home or self-care (01) ==
LOC: ORWHC2ENDO 07:13
PROVIDERS: ATTEND Internal Medicine Gastroenterology
DX: Z12.11 Encounter for screening for malignant neoplasm of colon (principal); K57.30 Diverticulosis of large intestine without perforation or abscess without bleeding; I10 Essential (primary) hypertension; F90.9 Attention-deficit hyperactivity disorder, unspecified type; F41.9 Anxiety disorder, unspecified; M79.7 Fibromyalgia; K21.9 Gastro-esophageal reflux disease without esophagitis; Z79.899 Other long term (current) drug therapy; Z90.710 Acquired absence of both cervix and uterus; Z87.891 Personal history of nicotine dependence
CPT/HCPCS: 45378; J2704

== ENCOUNTER → 2023-06-14 | Outpatient (CLI) | payer OTHER ==
--- NOTE | 2023-06-14 11:17 | XR ---
EXAMINATION TYPE: XR chest 2V DATE OF EXAM: 06/14/2023 COMPARISON: 11/09/2021. HISTORY: Positive TB test 30 years ago. TECHNIQUE: Frontal and lateral views of the chest are obtained. FINDINGS: There is no focal air space opacity, pleural effusion, or pneumothorax seen. The cardiac silhouette size is within normal limits. The osseous structures are intact. IMPRESSION: No acute cardiopulmonary process.
--- NOTE | 2023-06-15 14:56 | MM ---
Reason for Exam: Screening (asymptomatic). Last screening mammogram was performed 12 month(s) ago. Patient History: Menarche at age 11. First Full-Term at age 20. Left ovary removed at age 50. Right ovary removed at age 50. Hysterectomy at age 50. Postmenopausal. Currently using Estrogen, starting at age 50. Risk Values: Tricia 5 year model risk: 0.8%. NCI Lifetime model risk: 7.0%. Prior Study Comparison: 04/06/2020 Bilateral Screening Mammogram, [facility]. 06/10/2021 Bilateral Screening Mammogram, [facility] 06/13/2022 Bilateral MG screening mammo w CAD, [facility]. Tissue Density: There are scattered fibroglandular densities. Findings: Analyzed By CAD. There is no suspicious group of microcalcifications or new suspicious mass. Overall Assessment: Negative, BI-RAD 1 Management: Screening Mammogram of both breasts in [address] [facility] will attempt to contact patient to return for supplemental views and ultrasound if indicated. Patient should continue monthly self-breast exams. A clinical breast exam by your physician is recommended on an annual basis. This exam should not preclude additional follow-up of suspicious palpable abnormalities. Note on Tricia scores and lifetime risk: 1. A Tricia score greater than 3% is considered moderate risk. If this is the case, consider specialist referral to assess eligibility for a risk reducing agent. 2. If overall lifetime risk for the development of breast cancer is 20% or higher, the patient may qualify for future screening with alternating mammogram and breast MRI. Electronically signed and approved by: Samy Melgar DO
== END | disposition home or self-care (01) ==
LOC: RADMAMWWP 10:03
PROVIDERS: ATTEND Family Medicine
DX: Z12.31 Encounter for screening mammogram for malignant neoplasm of breast (principal); Z87.891 Personal history of nicotine dependence
CPT/HCPCS: 71046; 77067

== ENCOUNTER 2023-11-24 17:52 | Emergency (ER) | payer OTHER ==
--- NOTE | 2023-11-24 18:30 | ED ---
Animal Bite HPI - General Chief Complaint: Animal Bite Stated Complaint: Animal bite Time Seen by Provider: 11/24/23 18:10 Source: patient, RN notes reviewed Mode of arrival: ambulatory Limitations: no limitations - History of Present Illness Initial Comments: This is a 52-year-old female presents emergency department chief complaint of a animal bite to the right cheek. Patient states that she was dog sitting her nephew's dog when she was filling up the dog's water bowl near food and the dog bit her in the cheek. Patient states that the animal is up-to-date on vaccinations. Patient believes that her last tetanus vaccination was 3 years ago. No other acute complaints at this time. - Related Data Home Medications Medication Instructions Recorded Confirmed Dextroamphetamine/Amphetamine 30 mg PO BID 04/14/15 06/04/23 [Amphetamine Salts 30 mg Tablet] Loratadine 10 mg PO DAILY 04/14/15 06/04/23 ALPRAZolam [Xanax] 2 mg PO TID PRN 06/13/16 06/04/23 Hydrocodone/Acetaminophen [Maple 1 tab PO Q6H PRN 06/13/16 06/04/23 10-325] Ibuprofen [Motrin] 800 mg PO Q6HR PRN 05/16/19 06/04/23 Metoprolol Tartrate [Lopressor] 12.5 mg PO BID 02/28/21 06/04/23 Cholecalciferol [Vitamin D3 (25 25 mcg PO DAILY 06/04/23 06/04/23 Mcg = 1000 Iu)] Cyanocobalamin (Vitamin B-12) 1,000 mcg PO DAILY 06/04/23 06/04/23 [Vitamin B-12] Estrogens, Conjugated [Premarin] 0.3 mg PO DAILY 06/04/23 06/04/23 Magnesium 250 mg PO DAILY 06/04/23 06/04/23 Omeprazole 20 mg PO DAILY 06/04/23 06/04/23 Zinc Gluconate [Zinc] 50 mg PO DAILY 06/04/23 06/04/23 tiZANidine [Zanaflex] 4 mg PO Q8HR PRN 06/04/23 06/04/23 traZODone HCL 100 mg PO HS 06/04/23 06/04/23 Previous Rx's Medication Instructions Recorded Amoxic-Pot Clav 875-125Mg 1 tab PO Q12HR #20 tab 11/24/23 [Augmentin 875-201] Allergies Allergy/AdvReac Type Severity Reaction Status Date / Time bee venom protein (honey bee) Allergy Rash/Hives Verified 11/24/23 17:59 Review of Systems ROS Statement: Those systems with pertinent positive or pertinent negative responses have been documented in the HPI. ROS Other: All systems not noted in ROS Statement are negative. Past Medical History Past Medical History: Fibromyalgia, GERD/Reflux, Hearing Disorder / Deafness, Hypertension, Osteoarthritis (OA) Additional Past Medical History / Comment(s): Chronic back pain, 80% HEARING LOSS LT EAR History of Any Multi-Drug Resistant Organisms: None Reported Past Surgical History: Ear Surgery, Hysterectomy, Joint Replacement, Orthopedic Surgery, Tonsillectomy Additional Past Surgical History / Comment(s): Left knee surgery, left rotator cuff repair, deviated septum repair, sinus surgery, ear surgery, bilateral carpal tunnel release, EGD, RT TKA, COLONOSCOPY, Past Anesthesia/Blood Transfusion Reactions: Motion Sickness, Postoperative Nausea & Vomiting (PONV) Past Psychological History: ADD/ADHD, Anxiety Smoking Status: Former smoker - Past Family History Mother Family Medical History: No Reported History General Exam Limitations: no limitations General appearance: alert, in no apparent distress Head exam: Present: atraumatic, normocephalic, normal inspection Eye exam: Present: normal appearance, PERRL, EOMI. Absent: scleral icterus, conjunctival injection, periorbital swelling ENT exam: Present: normal exam, mucous membranes moist Neck exam: Present: normal inspection. Absent: tenderness, meningismus, lymphadenopathy Respiratory exam: Present: normal lung sounds bilaterally. Absent: respiratory distress, wheezes, rales, rhonchi, stridor Cardiovascular Exam: Present: regular rate, normal rhythm, normal heart sounds. Absent: systolic murmur, diastolic murmur, rubs, gallop, clicks GI/Abdominal exam: Present: soft, normal bowel sounds. Absent: distended, tenderness, guarding, rebound, rigid Extremities exam: Present: normal inspection, full ROM, normal capillary refill. Absent: tenderness, pedal edema, joint swelling, calf tenderness Back exam: Present: normal inspection Neurological exam: Present: alert, oriented X3, CN II-XII intact Psychiatric exam: Present: normal affect, normal mood Skin exam: Present: other (laceration to right cheek aprox. 1 cm in diameter, no evidence of through and through laceration/bite) Course Vital Signs 11/24/23 17:55 Temperature 98.2 F Pulse Rate 72 Respiratory 20 Rate Blood Pressure 155/79 O2 Sat by Pulse 98 Oximetry Procedures - Laceration Laceration #1 Consent Obtained: verbal consent Indication: laceration Site: face Size (cm): 1 Description: linear Depth: simple, single layer Anesthetic Used: lidocaine 1% Anesthesia Technique: local infiltration Amount (mls): 2 Pre-repair: wound explored, irrigated extensively Type of Sutures: nylon Size of Sutures: 5-0 Number of Sutures: 1 Technique: simple, interrupted Patient Tolerated Procedure: well, no complications Medical Decision Making - Medical Decision Making Was pt. sent in by a medical professional or institution (, JEM, CLINICAL TRIAL MANAGER, urgent care, hospital, or half-way...) When possible be specific @ -No Did you speak to anyone other than the patient for history (EMS, parent, family, police, friend...)? What history was obtained from this source @ -No Did you review nursing and triage notes (agree or disagree)? Why? @ -I reviewed and agree with nursing and triage notes Were old charts reviewed (outside hosp., previous admission, EMS record, old EKG, old radiological studies, urgent care reports/EKG's, half-way records)? Report findings @ -No old charts were reviewed Differential Diagnosis (chest pain, altered mental status, abdominal pain women, abdominal pain men, vaginal bleeding, weakness, fever, dyspnea, syncope, headache, dizziness, GI bleed, back pain, seizure, CVA, palpatations, mental health, musculoskeletal)? @ -Laceration, animal bite EKG interpreted by me (3pts min.). @ -None X-rays interpreted by me (1pt min.). @ -None done CT interpreted by me (1pt min.). @ -None done U/S interpreted by me (1pt. min.). @ -None done What testing was considered but not performed or refused? (CT, X-rays, U/S, labs)? Why? @ -None What meds were considered but not given or refused? Why? @ -None Did you discuss the management of the patient with other professionals (prof caron i.e. JEM Herman, CLINICAL TRIAL MANAGER, lab, RT, psych nurse, mental health social worker, bulk delivery driver, teacher, licensed mortgage loan officer, protective services case worker)? Give summary @ -No Was smoking cessation discussed for >3mins.? @ -No Was critical care preformed (if so, how long)? @ -No Were there social determinants of health that impacted care today? How? (Homelessness, low income, unemployed, alcoholism, drug addiction, transportation, low edu. Level, literacy, decrease access to med. care, [place] [facility], rehab)? @ -No Was there de-escalation of care discussed even if they declined (Discuss DNR or withdrawal of care, Hospice)? DNR status @ -No What co-morbidities impacted this encounter? (DM, HTN, Smoking, COPD, CAD, Cancer, CVA, ARF, Chemo, Hep., AIDS, mental health diagnosis, sleep apnea, morbid obesity)? @ -None Was patient admitted / discharged? Hospital course, mention meds given and route, prescriptions, significant lab abnormalities, going to OR and other pertinent info. @ -discharged. 52-year-old female with a animal weight. On examination patient noted to have roughly 1 cm puncture wound to the right cheek. There is no evidence of a through and through injury. Patient is neurovascularly intact. She states that her last vaccination was approximately 3 years ago however is unsure and therefore she is provided with a her tetanus vaccination here. Area was thoroughly cleansed with sterile water and numbed with 1% lidocaine. 1 simple interrupted suture was placed with 5-0 nylon. Patient was provided with a dose of Augmentin in the emergency department sent a prescription for Augmentin. Have patient report to the emergency department return to her primary care provider in 5 days for suture removal. Strict return parameters discussed with the patient all questions answered at bedside she is verbalized understanding. Case discussed with Dr. Alvares Undiagnosed new problem with uncertain prognosis? @ -No Drug Therapy requiring intensive monitoring for toxicity (Heparin, Nitro, Insulin, Cardizem)? @ -No Were any procedures done? @ -wound irrigation, simple suture repair with 5-0 nylon Diagnosis/symptom? @ - animal bite Acute, or Chronic, or Acute on Chronic? @ -acute Uncomplicated (without systemic symptoms) or Complicated (systemic symptoms)? @ -uncomplicated Side effects of treatment? @ -No Exacerbation, Progression, or Severe Exacerbation? @ -No Poses a threat to life or bodily function? How? (Chest pain, USA, SC, pneumonia, PE, COPD, DKA, ARF, appy, cholecystitis, CVA, Diverticulitis, Homicidal, Suicidal, threat to staff... and all critical care pts) @ -No Disposition Clinical Impression: Dog bite Disposition: HOME SELF-CARE Condition: Good Instructions (If sedation given, give patient instructions): Animal Bite (ED), Care For Your Stitches (ED) Additional Instructions: Complete full course of antibiotics as prescribed. Return to the emergency depa rtment for any new or worsening symptoms. Return to the emergency department report to your primary care provider within the next 5 days for suture removal. Prescriptions: Amoxic-Pot Clav 875-125Mg [Augmentin 875-125] 1 tab PO Q12HR #20 tab Is patient prescribed a controlled substance at d/c from ED?: No Referrals: Giorgio Coon DO [Primary Care Provider] - 1-2 days
[2023-11-24] MEDS: DIPH,PERTUS(ACELL)TETVAC-LF 0.5 ML VIAL IM ONE (18:50)
[2023-11-24] MEDS: LIDOCAINE 1% INJ 10MG/ML (20 ML MDV) SQ ONE (18:50)
[2023-11-24] MEDS: AMOXIC-POT CLAV 875-125MG 1 EACH TAB PO STA (19:22)
[2023-11-24 19:27] VITALS: BP 146/99; PULSE 71; RESP 17; TEMP 98.3
== END 2023-11-24 19:27 | disposition home or self-care (01) ==
LOC: EC 17:52
DX: S01.411A Laceration without foreign body of right cheek and temporomandibular area, initial encounter (principal); Z91.030 Bee allergy status; Z87.891 Personal history of nicotine dependence; Z23 Encounter for immunization; W54.0XXA Bitten by dog, initial encounter
CPT/HCPCS: 90715; 99283; 90471; J2001

== ENCOUNTER → 2024-06-25 | Outpatient (CLI) | payer MEDICARE, OTHER ==
--- NOTE | 2024-06-26 08:14 | MM ---
Reason for Exam: Screening (asymptomatic). Last screening mammogram was performed 12 month(s) ago. Patient History: Menarche at age 11. First Full-Term at age 20. Left ovary removed at age 50. Right ovary removed at age 50. Hysterectomy at age 50. Postmenopausal. Currently using Estrogen, starting at age 50. Risk Values: Tricia 5 year model risk: 0.8%. NCI Lifetime model risk: 6.9%. Prior Study Comparison: 06/10/2021 Bilateral Screening Mammogram, [facility]. 06/13/2022 Bilateral MG screening mammo w CAD, [facility]. 06/14/2023 Bilateral MG screening mammo w CAD, [facility]. Tissue Density: The breasts are almost entirely fatty. Findings: Analyzed By CAD. Right breast: There is no suspicious group of microcalcifications or new suspicious mass. Left breast: There is no suspicious group of microcalcifications or new suspicious mass. Overall Assessment: Negative, BI-RAD 1 Management: Screening Mammogram of both breasts in [address] [facility] will attempt to contact patient to return for supplemental views and ultrasound if indicated. Patient should continue monthly self-breast exams. A clinical breast exam by your physician is recommended on an annual basis. This exam should not preclude additional follow-up of suspicious palpable abnormalities. Note on Tricia scores and lifetime risk: 1. A Tricia score greater than 3% is considered moderate risk. If this is the case, consider specialist referral to assess eligibility for a risk reducing agent. 2. If overall lifetime risk for the development of breast cancer is 20% or higher, the patient may qualify for future screening with alternating mammogram and breast MRI. [facility], , 06/26/2024 8:11 AM. Electronically signed and approved by: Samy Melgar DO
== END | disposition home or self-care (01) ==
LOC: RADMAMWWP 16:00
PROVIDERS: ATTEND Family Medicine
DX: Z12.31 Encounter for screening mammogram for malignant neoplasm of breast (principal); R92.313 Mammographic fatty tissue density, bilateral breasts; Z78.0 Asymptomatic menopausal state
CPT/HCPCS: 77063; 77067

== ENCOUNTER → 2024-08-01 | Outpatient (CLI) | payer MEDICARE, OTHER ==
[2024-08-01 15:51] LABS: Appearance,Urine Clear (Clear); Bilirubin,Urine Negative (Negative); Blood,Urine Negative (Negative); Color,Urine Colorless; Glucose,Urine (UA) Negative (Negative); Ketones,Urine Negative (Negative); Leukocyte Esterase,Urine Negative (Negative); Nitrite,Urine Negative (Negative); Protein,Urine Negative (Negative); Specific Gravity,Urine 1.005 (1.001-1.035); Urobilinogen,Urine <2.0 mg/dL (<2.0)
[2024-08-01 18:10] LABS: HGB 11.8 g/dL (12.0-15.0); MCH 28.6 pg (27.0-32.0); MCHC 31.9 g/dL (32.0-37.0); MCV 89.6 FL (80.0-97.0); Mean Platelet Volume 10.6 FL (9.5-12.2); NRBC Per 100 WBC 0 X 10*3/uL (0.00-0.01); Platelet Count 352 X 10*3/uL (140-440); RBC 4.13 X 10*6/uL (4.10-5.20); RDW 13.2 % (11.5-14.5); WBC 9.46 X 10*3/uL (4.50-10.00)
[2024-08-01 18:28] LABS: Urine Alcohol Negative (Negative); Urine Barbiturate Negative (Negative); Urine Cocaine Negative (Negative); Urine Methadone Negative (Negative); Urine Opiates Negative (Negative); Urine Phencyclidine Negative (Negative)
[2024-08-01 19:30] LABS: ALT 27 U/L (8-44); AST 23 U/L (13-35); Albumin 4.1 g/dL (3.8-4.9); Albumin/Globulin Ratio 1.52 Ratio (1.60-3.17); Alkaline Phosphatase 103 U/L (41-126); BUN/Creat Ratio 27.33 Ratio (12.00-20.00); Blood Urea Nitrogen 16.4 mg/dL (9.0-27.0); Calcium 9.7 mg/dL (8.7-10.3); Carbon Dioxide 23.5 mmol/L (21.6-31.8); Chloride 105 mmol/L (96-109); Chol/HDL Ratio 4.38 Ratio; Globulin 2.7 g/dL (1.6-3.3); Glucose 97 mg/dL (70-110); LDL Cholesterol,Calculated 165.3 mg/dL (0.0-131.0); Potassium 4.5 mmol/L (3.5-5.5); Sodium 141 mmol/L (135-145); Total Bilirubin <0.2 mg/dL (0.3-1.2); Total Protein 6.8 g/dL (6.2-8.2)
== END | disposition home or self-care (01) ==
LOC: LABWHC1 13:11
PROVIDERS: ATTEND Psychiatry & Neurology Psychiatry
DX: Z79.899 Other long term (current) drug therapy (principal)
CPT/HCPCS: 36415; 80053; 80061; 80306; 81003; 82306; 83036; 84443; 85027